=== PATIENT | female | born 1990 | race Caucasian/White ===

== ENCOUNTER 2016-05-31 13:38 | Emergency (ER) | payer OTHER ==
[2016-05-31] MEDS ORDERED: PROMETHAZINE HCL 25 MG TABLET PO ONE ×2 (14:32→19:40)
[2016-05-31] MEDS ORDERED: ACETAMINOPHEN 325 MG TABLET PO ONE (14:32)
--- NOTE | 2016-05-31 14:32 | ER Document Report ---
ED Medical Screen (RME) - General Stated Complaint: VOMITING Time seen by provider: 14:30 Mode of Arrival: Ambulatory Information source: Patient Notes: 26-year-old female presents to ED for nausea and vomiting 5 today. She states vomiting up bile. States she was here the other day for UTI and not is not getting better. Having abdominal pain since this morning generalized 5/5. Last menstrual period was 04/25/2016. I have greeted and performed a rapid initial assessment of this patient. A comprehensive ED assessment and evaluation of the patient, analysis of test results and completion of medical decision making process will be conducted by an additional ED providers. TRAVEL OUTSIDE OF THE [place] IN LAST 30 DAYS: No - Related Data Allergies/Adverse Reactions: Sulfa (Sulfonamide Antibiotics) Allergy (Verified 05/25/16 06:49) Hives aspirin [Aspirin] Adverse Reaction (Intermediate, Verified 05/25/16 06:49) Abdominal pain Past Medical History Pulmonary Medical History: Reports: Hx Asthma Renal/ Medical History: Reports: Hx Kidney Stones. Denies: Hx Peritoneal Dialysis GI Medical History: Reports: Hx Gastroesophageal Reflux Disease Musculoskeltal Medical History: Reports Hx Musculoskeletal Trauma Skin Medical History: Reports Hx Cellulitis, Reports Hx MRSA Psychiatric Medical History: Reports: Hx Attention Deficit Hyperactivity Disorder, Hx Depression Traumatic Medical History: Reports: Hx Fractures - toe Past Surgical History: Reports: Hx Myringotomy, Hx Nose Surgery, Hx Tonsillectomy - Immunizations Immunizations up to date: Yes Hx Diphtheria, Pertussis, Tetanus Vaccination: Yes Physical Exam - Vital signs Vitals: Temp Pulse Resp BP Pulse Ox 98.9 F 93 14 129/87 H 98 05/31/16 14:05/31/16 14:05/31/16 14:05/31/16 14:05/31/16 14:27 Course - Vital Signs Vital signs: Temp Pulse Resp BP Pulse Ox 98.9 F 93 14 129/87 H 98 05/31/16 14:27 05/31/16 14:27 05/31/16 14:27 05/31/16 14:27 05/31/16 14:27
[2016-05-31 15:24] LABS: ABSOLUTE BASOPHILS # (AUTO) 0.1 10^3/uL (0.0-0.2); ABSOLUTE EOSINOPHILS # (AUTO) 0.1 10^3/uL (0.0-0.6); ABSOLUTE LYMPHOCYTES (AUTO) 2.1 10^3/uL (0.5-4.7); ABSOLUTE MONOCYTES (AUTO) 0.7 10^3/uL (0.1-1.4); ABSOLUTE NEUT (AUTO) 10.9 10^3/uL (1.7-8.2); BASOPHILS % (AUTO) 0.5 % (0-2); EOSINOPHILS % (AUTO) 0.5 % (0-6); HEMATOCRIT 45.9 % (36.0-47.0); HEMOGLOBIN 15.8 g/dL (12.0-15.5); HGB HCT DIFFERENCE 1.5; MEAN CORPUSCULAR HEMOGLOBIN 28.9 pg (27.0-33.4); MEAN CORPUSCULAR HGB CONC 34.4 g/dL (32.0-36.0); MEAN CORPUSCULAR VOLUME 84 fl (80-97); RED BLOOD COUNT 5.47 10^6/uL (3.72-5.28); RED CELL DISTRIBUTION WIDTH 13.7 % (11.5-14.0); WHITE BLOOD COUNT 13.8 10^3/uL (4.0-10.5)
[2016-05-31 15:38] LABS: APPEARANCE,URINE CLEAR; BILIRUBIN,URINE NEGATIVE (NEGATIVE); GLUCOSE, URINE NEGATIVE (NEGATIVE); KETONES,URINE 20 mg/dL (NEGATIVE); LEUKOCYTE ESTERASE,URINE TRACE (NEGATIVE); NITRITE,URINE NEGATIVE (NEGATIVE); PROTEIN,URINE NEGATIVE (NEGATIVE); URINE SPECIFIC GRAVITY 1.016; UROBILINOGEN,URINE NEGATIVE mg/dL (<2.0)
[2016-05-31 15:40] LABS: ALANINE AMINOTRANSFERASE 52 U/L (9-52); ALBUMIN 4.3 g/dL (3.5-5.0); ALKALINE PHOSPHATASE 87 U/L (38-126); ANION GAP 15 (5-19); ASPARTATE AMINO TRANSFERASE 44 U/L (14-36); BILIRUBIN,DIRECT 0.2 mg/dL (0.0-0.4); BILIRUBIN,TOTAL 0.9 mg/dL (0.2-1.3); BLOOD UREA NITROGEN 9 mg/dL (7-20); CALCIUM 9.7 mg/dL (8.4-10.2); CARBON DIOXIDE 24 mmol/L (22-30); CHLORIDE 104 mmol/L (98-107); CREATININE RESULT 0.77 mg/dL (0.52-1.25); GLUCOSE 93 mg/dL (75-110); POTASSIUM 4.4 mmol/L (3.6-5.0); SODIUM 143.1 mmol/L (137-145); TOTAL PROTEIN 7.2 g/dL (6.3-8.2)
--- NOTE | 2016-05-31 19:43 | ER Document Report ---
ED GI/ - General Chief Complaint: Abdominal Pain Stated Complaint: VOMITING Time seen by provider: 19:40 Mode of Arrival: Ambulatory Notes: Patient is a 26 year old female that comes to the ED for chief complaint of vomiting, diarrhea, and general abdominal pain that started today. Patient and mom state that multiple family members have the same vomiting symptoms, however patient recently began being treated for urinary tract infection and she is concerned it may have worsened. She denies fever. She denies vaginal bleeding or discharge, blood in vomit or diarrhea, she has only had one to 2 episodes of diarrhea and about 5 episodes of vomiting. She was given Phenergan in triage and has been eating crackers since that time. Patient with medications for anxiety and sleep, denies any abdominal surgeries. TRAVEL OUTSIDE OF THE [place] IN LAST 30 DAYS: No - Related Data Allergies/Adverse Reactions: Sulfa (Sulfonamide Antibiotics) Allergy (Verified 05/31/16 14:31) Hives aspirin [Aspirin] Adverse Reaction (Intermediate, Verified 05/31/16 14:31) Abdominal pain Past Medical History - General Information source: Patient - Social History Smoking Status: Never Smoker Chew tobacco use (# tins/day): No Frequency of alcohol use: None Drug Abuse: None Lives with: Family Family History: Arthritis, CAD, CVA, DM, Hyperlipidemia, Hypertension, Thyroid Disfunction Patient has suicidal ideation: No Patient has homicidal ideation: No Pulmonary Medical History: Reports: Hx Asthma Renal/ Medical History: Reports: Hx Kidney Stones. Denies: Hx Peritoneal Dialysis GI Medical History: Reports: Hx Gastroesophageal Reflux Disease Musculoskeltal Medical History: Reports Hx Musculoskeletal Trauma Skin Medical History: Reports Hx Cellulitis, Reports Hx MRSA Psychiatric Medical History: Reports: Hx Attention Deficit Hyperactivity Disorder, Hx Depression Traumatic Medical History: Reports: Hx Fractures - toe Past Surgical History: Reports: Hx Myringotomy, Hx Nose Surgery, Hx Tonsillectomy - Immunizations Immunizations up to date: Yes Hx Diphtheria, Pertussis, Tetanus Vaccination: Yes Review of Systems - Review of Systems Constitutional: No symptoms reported EENT: No symptoms reported Cardiovascular: No symptoms reported Respiratory: No symptoms reported Gastrointestinal: See HPI Genitourinary: See HPI Female Genitourinary: No symptoms reported Musculoskeletal: No symptoms reported Skin: No symptoms reported Hematologic/Lymphatic: No symptoms reported Neurological/Psychological: No symptoms reported Physical Exam - Vital signs Vitals: Temp Pulse Resp BP Pulse Ox 98.9 F 93 14 129/87 H 98 05/31/16 14:27 05/31/16 14:27 05/31/16 14:27 05/31/16 14:27 05/31/16 14:27 Interpretation: Normal - General General appearance: Appears well, Alert In distress: None - Alert and well-appearing - HEENT Head: Normocephalic, Atraumatic Eyes: Normal Extraocular movements intact: Yes Eyelashes: Normal Pupils: PERRL Mucous membranes: Normal Pharynx: Normal Neck: Normal - Respiratory Respiratory status: No respiratory distress Chest status: Nontender Breath sounds: Normal. No: Decreased air movement, Wheezing Chest palpation: Normal - Cardiovascular Rhythm: Regular Heart sounds: Normal auscultation Murmur: No - Abdominal Inspection: Normal Distension: No distension Bowel sounds: Normal Tenderness: Nontender. No: Tender - Soft and benign throughout Organomegaly: No organomegaly - Back Back: Normal, Nontender. No: CVA tenderness - Unremarkable bilaterally - Extremities General upper extremity: Normal inspection, Nontender, Normal color, Normal ROM , Normal temperature General lower extremity: Normal inspection, Nontender, Normal color, Normal ROM , Normal temperature, Normal weight bearing. No: Bucky's sign - Neurological Neuro grossly intact: Yes Cognition: Normal Orientation: AAOx4 [place] Coma Scale Eye Opening: Spontaneous [place] Coma Scale Verbal: Oriented [place] Coma Scale Motor: Obeys Commands Jacob Coma Scale Total: 15 Speech: Normal Motor strength normal: LUE, RUE, LLE, RLE Sensory: Normal - Psychological Associated symptoms: Normal affect, Normal mood - Skin Skin Temperature: Warm Skin Moisture: Dry Skin Color: Normal Course - Re-evaluation Re-evalutation: Patient's urine is markedly improved and basically resolved compared to prior. No CVA tenderness, soft abdomen. Patient is very well-appearing. Patient states she felt much better after the Phenergan. Has been tolerating fluids all waiting. Asking for another dose of Phenergan because it has been some hours. Mild leukocytosis, chemistry and urine generally unremarkable. Suspect this is viral, patient will complete antibiotics, be treated with nausea medication, follow with primary care, and discussed return precautions. Patient and family members state understanding and agreement. - Vital Signs Vital signs: Temp Pulse Resp BP Pulse Ox 99.0 F 86 16 118/79 97 05/31/16 20:15 05/31/16 20:15 05/31/16 20:15 05/31/16 20:15 05/31/16 20:15 - Laboratory Result Diagrams: 05/31/16 15:00 05/31/16 15:00 Laboratory results interpreted by me: 05/31/16 05/31/16 05/31/16 14:55 15:00 15:00 WBC 13.8 H RBC 5.47 H Hgb 15.8 H Seg Neutrophils % 79.0 H Absolute Neutrophils 10.9 H AST 44 H Urine Ketones 20 H Ur Leukocyte Esterase TRACE H Urine Ascorbic Acid 40 H Discharge - Discharge Clinical Impression: Vomiting and diarrhea Condition: Stable Disposition: HOME, SELF-CARE Additional Instructions: Based on your examination and workup, this vomiting and diarrhea is most likely viral and should subside. Rest, drink plenty of fluids, eat bland food, take the Phenergan for nausea. Return to emergency department for any concerning or worsening symptoms including fever, uncontrolled vomiting, increased pain, etc. Prescriptions: Promethazine HCl [Phenergan 25 mg Tablet] 1 - 2 tab PO Q6H PRN #20 tablet PRN Reason: Scribe Attestation: 05/31/16 19:43
[2016-05-31 20:18] VITALS: BP 118/79
== END 2016-05-31 20:11 | disposition home or self-care (01) ==
LOC: ER 13:38
DX: R11.10 Vomiting, unspecified (principal); R19.7 Diarrhea, unspecified; R10.9 Unspecified abdominal pain
CPT/HCPCS: 36415; 80053; 81001; 84703; 85025; 99284

== ENCOUNTER 2016-08-08 11:37 | Emergency (ER) | payer SELFPAY ==
[2016-08-08 11:47] VITALS: BP 127/91
[2016-08-08] MEDS ORDERED: LIDOCAINE 1% INJ (10 MG/ML) 10 ML MDV INJ ONE (11:51)
[2016-08-08] MEDS ORDERED: DIPH/PERTUSS(ACELL)/TETANUS VAC/PF 0.5 ML SYR (>=10YO) IM ONE (11:51)
[2016-08-08] MEDS ORDERED: LIDOCAINE 1% INJ-PF (10 MG/ML) 30 ML SDV ONE (12:40)
--- NOTE | 2016-08-08 13:06 | ER Document Report ---
ED General - General Chief Complaint: Foreign Body Stated Complaint: HEAD INJURY Time Seen by Provider: 08/08/16 11:51 Mode of Arrival: Ambulatory Information source: Patient TRAVEL OUTSIDE OF THE [place] IN LAST 30 DAYS: No - HPI Onset: Just prior to arrival Associated symptoms: None - This 26-year-old female presented to the emergency room today stating that she was mowing the lawn when she had something and it then struck her in the forehead. She presents with a thick piece of wire protruding from her forehead in the center. - Related Data Allergies/Adverse Reactions: Sulfa (Sulfonamide Antibiotics) Allergy (Verified 05/31/16 14:31) Hives aspirin [Aspirin] Adverse Reaction (Intermediate, Verified 05/31/16 14:31) Abdominal pain Past Medical History - General Information source: Patient - Social History Smoking Status: Never Smoker Chew tobacco use (# tins/day): No Frequency of alcohol use: Rare Drug Abuse: None Family History: Arthritis, CAD, CVA, DM, Hyperlipidemia, Hypertension, Thyroid Disfunction Patient has suicidal ideation: No Patient has homicidal ideation: No Pulmonary Medical History: Reports: Hx Asthma Renal/ Medical History: Reports: Hx Kidney Stones. Denies: Hx Peritoneal Dialysis GI Medical History: Reports: Hx Gastroesophageal Reflux Disease Musculoskeltal Medical History: Reports Hx Musculoskeletal Trauma Skin Medical History: Reports Hx Cellulitis, Reports Hx MRSA Psychiatric Medical History: Reports: Hx Attention Deficit Hyperactivity Disorder, Hx Depression Traumatic Medical History: Reports: Hx Fractures - toe Past Surgical History: Reports: Hx Myringotomy, Hx Nose Surgery, Hx Tonsillectomy - Immunizations Immunizations up to date: Yes Hx Diphtheria, Pertussis, Tetanus Vaccination: Yes - unknown Review of Systems - Review of Systems Constitutional: No symptoms reported EENT: No symptoms reported Cardiovascular: No symptoms reported Respiratory: No symptoms reported Gastrointestinal: No symptoms reported Genitourinary: No symptoms reported Female Genitourinary: No symptoms reported Musculoskeletal: No symptoms reported Skin: No symptoms reported Hematologic/Lymphatic: No symptoms reported Neurological/Psychological: No symptoms reported Physical Exam - Vital signs Vitals: Temp Pulse Resp BP Pulse Ox 98 F 83 18 127/91 H 97 08/08/16 11:42 08/08/16 11:42 08/08/16 11:42 08/08/16 11:42 08/08/16 11:42 Interpretation: Normal - General General appearance: Appears well, Alert - HEENT Head: Normocephalic, Atraumatic Eyes: Normal Pupils: PERRL - Respiratory Respiratory status: No respiratory distress Chest status: Nontender Breath sounds: Normal Chest palpation: Normal - Cardiovascular Rhythm: Regular Heart sounds: Normal auscultation Murmur: No - Abdominal Inspection: Normal Distension: No distension Bowel sounds: Normal Tenderness: Nontender Organomegaly: No organomegaly - Back Back: Normal, Nontender - Extremities General upper extremity: Normal inspection, Nontender, Normal color, Normal ROM , Normal temperature General lower extremity: Normal inspection, Nontender, Normal color, Normal ROM , Normal temperature, Normal weight bearing. No: Bucky's sign - Neurological Neuro grossly intact: Yes Cognition: Normal Orientation: AAOx4 [place] Coma Scale Eye Opening: Spontaneous Jacob Coma Scale Verbal: Oriented Jacob Coma Scale Motor: Obeys Commands Jacob Coma Scale Total: 15 Speech: Normal Motor strength normal: LUE, RUE, LLE, RLE Sensory: Normal - Psychological Associated symptoms: Normal affect, Normal mood - Skin Skin Temperature: Warm Skin Moisture: Dry Skin Color: Normal Course - Re-evaluation Re-evalutation: 08/08/16 13:02 The area was anesthetized 1% lidocaine was cleansed with normal saline and Betadine the point of time it was infiltrated with 1% lidocaine foreign body was removed nurse was asked to clean the affected wound. Bleeding was controlled and was neurovascularly intact after the procedure. 08/08/16 13:03 - Vital Signs Vital signs: Temp Pulse Resp BP Pulse Ox 98 F 83 18 127/91 H 97 08/08/16 11:42 08/08/16 11:42 08/08/16 11:42 08/08/16 11:42 08/08/16 11:42 Discharge - Discharge Clinical Impression: Foreign body to forehead removed Disposition: HOME, SELF-CARE Additional Instructions: Foreign Body You may have had a particle of dust or other foreign body in your eye Today, either your foreign body was found and removed or no foreign body was found. Your eye may be irritated until complete healing occurs. The usual treatment is to place antibiotics in the eye. In addition, pain medication may be necessary. A follow-up visit may be scheduled to assure healing. Do not drive or operate machinery until you have the full use of both your eyes. Healing of the area takes one to three days. If eye pain becomes severe, or if there is purulent drainage, eye swelling , or decreasing vision, call the doctor or return at once for re-evaluation. That area clean and dry follow-up with PMD for recheck to ensure that there is no redness no drainage no discharge please return to the emergency room immediately should any of these things occur. Prescriptions: Sulfamethoxazole/Trimethoprim [Septra-Ds 800-160 mg Tablet] 1 tab PO NOW #20 tablet
== END 2016-08-08 13:00 | disposition home or self-care (01) ==
LOC: ER 11:37
DX: S01.84XA Puncture wound with foreign body of other part of head, initial encounter (principal); W20.8XXA Other cause of strike by thrown, projected or falling object, initial encounter; Y93.H9 Activity, other involving exterior property and land maintenance, building and construction; Z88.2 Allergy status to sulfonamides; J45.909 Unspecified asthma, uncomplicated; Z86.14 Personal history of Methicillin resistant Staphylococcus aureus infection
CPT/HCPCS: 99283; 90471; 90715; J3490

== ENCOUNTER → 2016-08-12 | Outpatient (CLI) | payer OTHER ==
--- NOTE | 2016-08-12 09:18 | RADIOLOGY REPORT (SQ) ---
EXAM DESCRIPTION: U/S ABDOMEN LIMITED W/O DOP COMPLETED DATE/TIME: 08/12/2016 8:37 am REASON FOR STUDY: N/V (R11.2) R11.2 COMPARISON: CT abdomen pelvis 05/25/2016 Abdominal ultrasound 06/18/2015 TECHNIQUE: Dynamic and static grayscale images acquired of the abdomen and recorded on PACS. Additio nal selected color Doppler and spectral images recorded. LIMITATIONS: None. FINDINGS: PANCREAS: Midline pancreas unremarkable LIVER: No masses. Echotexture normal. LIVER VASCULATURE: Normal directional flow of the main portal vein and hepatic veins. GALLBLADDER: No stones. Normal wall thickness. No pericholecystic fluid. ULTRASOUND-DETECTED ZHANG'S SIGN: Negative. INTRAHEPATIC DUCTS AND COMMON DUCT: CBD and intrahepatic ducts normal caliber. No filling defects. C ommon bile duct at the corina hepatis 3 mm in diameter INFERIOR VENA CAVA: Normal flow. AORTA: No aneurysm. RIGHT KIDNEY: Normal size. No right-sided hydronephrosis. Right-sided intrarenal nonobstructive st ones seen on CT 05/25/2016 are not apparent on today's ultrasound PERITONEAL AND RIGHT PLEURAL SPACE: No ascites or effusions. OTHER: The right lower quadrant was imaged. The appendix is not identified. Normal size right ovary , without ovarian cyst. IMPRESSION: No right-sided hydronephrosis. Small calculi seen in the right kidney on CT 05/25/2016 a re not apparent on today's ultrasound exam Appendix not identified Otherwise unremarkable right upper quadrant ultrasound TECHNICAL DOCUMENTATION: JOB ID: [id number] [email or web address]- All Rights Reserved
--- NOTE | 2016-08-12 11:49 | RADIOLOGY REPORT (SQ) ---
EXAM DESCRIPTION: CT ABD/PELVIS WITH IV ORAL COMPLETED DATE/TIME: 08/12/2016 11:38 am REASON FOR STUDY: RLQ PAIN (R10.31) R11.2 COMPARISON: CT abdomen pelvis 05/25/2016 Abdominal ultrasound 08/12/2016, 06/18/2015 TECHNIQUE: CT scan of the abdomen and pelvis performed using helical scanning technique with dynamic intravenous contrast injection. Patient drank minimal oral contrast. Images reviewed with lung, sof t tissue, and bone windows. Reconstructed coronal and sagittal MPR images reviewed. Delayed images fo r evaluation of the urinary system also acquired. All images stored on PACS. All CT scanners at this facility use dose modulation, iterative reconstruction, and/or weight based d osing when appropriate to reduce radiation dose to as low as reasonably achievable (ALARA). [facility]: Dose Right [facility]: CareDose [facility]: Dose Right [facility]: Teradose 4D [facility]: Broadcast [employer] Graphics Display System CONTRAST TYPE AND DOSE: 100mL Isovue 370- low osmolar. RENAL FUNCTION: Creatinine 0.8 RADIATION DOSE: 33.63mGy. LIMITATIONS: None. FINDINGS: LOWER CHEST: No significant findings. No nodules or infiltrates. LIVER: Normal size. No masses or dilated ducts. SPLEEN: Normal size. No focal lesions. PANCREAS: No masses. No significant calcifications. No adjacent inflammation or peripancreatic fluid collections. Pancreatic duct not dilated. GALLBLADDER: No identified stones by CT criteria. No inflammatory changes to suggest cholecystitis. ADRENAL GLANDS: No significant masses or asymmetry. RIGHT KIDNEY AND URETER: No solid masses. Multiple less than 5 mm intrarenal nonobstructive kidney stones. No right ureteral calculi. No hydronephrosis or hydroureter. LEFT KIDNEY AND URETER: No solid masses. Multiple less than 5 mm intrarenal nonobstructive kidney s tones. No left ureteral calculi. No hydronephrosis or hydroureter. AORTA AND VESSELS: No aneurysm. No dissection. Renal arteries, SMA, celiac without stenosis. RETROPERITONEUM: No retroperitoneal adenopathy, hemorrhage or masses. BOWEL AND PERITONEAL CAVITY: No masses or inflammatory changes. No free fluid or peritoneal masses. APPENDIX: Normal. PELVIS: No mass or free fluid. Normal bladder. ABDOMINAL WALL: No masses. No hernias. BONES: No significant or acute findings. OTHER: No other significant finding. IMPRESSION: Bilateral intrarenal nonobstructive kidney stones. No ureteral calculi. No hydronephro sis or hydroureter. No bladder stones. No CT evidence of bowel obstruction or appendicitis. TECHNICAL DOCUMENTATION: JOB ID: [id number] Quality ID # [id number]: Final reports with documentation of one or more dose reduction techniques (e.g., Au tomated exposure control, adjustment of the mA and/or kV according to patient size, use of iterative reconstruction technique) 2010 [employer]- All Rights Reserved
== END ==
LOC: RAD 07:09
PROVIDERS: ATTEND Nurse Practitioner Family
DX: R10.31 Right lower quadrant pain (principal); R11.2 Nausea with vomiting, unspecified; N20.0 Calculus of kidney
CPT/HCPCS: 74177; 76705; 82565

== ENCOUNTER 2016-12-06 22:31 | Emergency (ER) | payer OTHER ==
[2016-12-06 22:37] VITALS: BP 131/86
[2016-12-06] MEDS ORDERED: KETOROLAC TROMETHAMINE INJ/PF 30 MG/1 ML SDV IV ONE (22:43)
[2016-12-06] MEDS ORDERED: ONDANSETRON HCL INJ/PF 4 MG/2 ML SDV IV ONE (22:43)
[2016-12-06] MEDS ORDERED: MORPHINE SULFATE 10 MG/ML INJ IV ONE (22:45)
[2016-12-06] MEDS ORDERED: NORMAL SALINE 1000 ML 1,000 ML IV ONE (23:08)
--- NOTE | 2016-12-06 23:19 | ER Document Report ---
ED GI/ - General Chief Complaint: Flank Pain Stated Complaint: LEFT FLANK PAIN Time Seen by Provider: 12/06/16 22:44 Notes: The patient is a 26-year-old female, past medical history kidney stones, presents with left flank pain for the past 2 hours. PE: Actively vomiting in triage. I have greeted and performed a rapid initial assessment of this patient. A comprehensive ED assessment and evaluation of the patient, analysis of test results and completion of the medical decision making process will be conducted by additional ED providers. TRAVEL OUTSIDE OF THE [place] IN LAST 30 DAYS: No - Related Data Allergies/Adverse Reactions: Sulfa (Sulfonamide Antibiotics) Allergy (Verified 05/31/16 14:31) Hives aspirin [Aspirin] Adverse Reaction (Intermediate, Verified 05/31/16 14:31) Abdominal pain Past Medical History - Social History Smoking Status: Unknown if Ever Smoked Family History: Arthritis, CAD, CVA, DM, Hyperlipidemia, Hypertension, Thyroid Disfunction Patient has suicidal ideation: No Patient has homicidal ideation: No Pulmonary Medical History: Reports: Hx Asthma Renal/ Medical History: Reports: Hx Kidney Stones. Denies: Hx Peritoneal Dialysis GI Medical History: Reports: Hx Gastroesophageal Reflux Disease Musculoskeltal Medical History: Reports Hx Musculoskeletal Trauma Skin Medical History: Reports Hx Cellulitis, Reports Hx MRSA Psychiatric Medical History: Reports: Hx Attention Deficit Hyperactivity Disorder, Hx Depression Traumatic Medical History: Reports: Hx Fractures - toe Past Surgical History: Reports: Hx Myringotomy, Hx Nose Surgery, Hx Tonsillectomy - Immunizations Immunizations up to date: Yes Hx Diphtheria, Pertussis, Tetanus Vaccination: Yes - unknown Physical Exam - Vital signs Vitals: Temp Pulse Resp BP Pulse Ox 97.7 F 79 18 131/86 H 96 12/06/16 22:33 12/06/16 22:33 12/06/16 22:33 12/06/16 22:33 12/06/16 22:33 Course - Vital Signs Vital signs: Temp Pulse Resp BP Pulse Ox 97.7 F 79 18 131/86 H 96 12/06/16 22:33 12/06/16 22:33 12/06/16 22:33 12/06/16 22:33 12/06/16 22:33
--- NOTE | 2016-12-06 23:56 | ER Document Report ---
ED GI/ - General Mode of Arrival: Wheelchair Information source: Patient TRAVEL OUTSIDE OF THE [place] IN LAST 30 DAYS: No - General Chief Complaint: Flank Pain Stated Complaint: LEFT FLANK PAIN Time Seen by Provider: 12/06/16 22:44 Notes: Patient is a 26 year old female presenting to the emergency department for left flank pain, abdominal pain, and vomiting. Patient states her pain started in her left flank but has radiated into her lower left abdomen. Patient has a history of kidney stones and states her current pain is similar to the first kidney stone she had when she was in high school. Patient recently had a CT on 08/12/2016 showing bilateral intrarenal nonobstructing kidney stones. Patient states she last passed a kidney stone 2-3 weeks ago and she did so without seeking medical attention. Patient's last menstrual period was 1 week ago and was normal and on time. Patient is allergic to sulfa. (MARGARITA JEROME) - Related Data Allergies/Adverse Reactions: Sulfa (Sulfonamide Antibiotics) Allergy (Verified 05/31/16 14:31) Hives aspirin [Aspirin] Adverse Reaction (Intermediate, Verified 05/31/16 14:31) Abdominal pain Past Medical History - General Information source: Patient - Social History Smoking Status: Never Smoker Cigarette use (# per day): No Chew tobacco use (# tins/day): No Smoking Education Provided: No Frequency of alcohol use: None Drug Abuse: None Family History: Arthritis, CAD, CVA, DM, Hyperlipidemia, Hypertension, Thyroid Disfunction Patient has suicidal ideation: No Patient has homicidal ideation: No Pulmonary Medical History: Reports: Hx Asthma Renal/ Medical History: Reports: Hx Kidney Stones GI Medical History: Reports: Hx Gastroesophageal Reflux Disease Musculoskeltal Medical History: Reports Hx Musculoskeletal Trauma Skin Medical History: Reports Hx Cellulitis, Reports Hx MRSA Psychiatric Medical History: Reports: Hx Attention Deficit Hyperactivity Disorder, Hx Depression Traumatic Medical History: Reports: Hx Fractures - toe Past Surgical History: Reports: Hx Myringotomy, Hx Nose Surgery, Hx Tonsillectomy - Immunizations Immunizations up to date: Yes Hx Diphtheria, Pertussis, Tetanus Vaccination: Yes - unknown Review of Systems - Review of Systems Constitutional: No symptoms reported EENT: No symptoms reported Cardiovascular: No symptoms reported Respiratory: No symptoms reported Gastrointestinal: See HPI, Abdominal pain, Nausea, Vomiting Genitourinary: See HPI, Flank pain Female Genitourinary: No symptoms reported, Last menstrual period - 11/29/2016 Musculoskeletal: No symptoms reported Skin: No symptoms reported Hematologic/Lymphatic: No symptoms reported Neurological/Psychological: No symptoms reported -: Yes All other systems reviewed and negative Physical Exam - Vital signs Interpretation: Normal - Vital signs Vitals: Temp Pulse Resp BP Pulse Ox 97.7 F 79 18 131/86 H 96 12/06/16 22:33 12/06/16 22:33 12/06/16 22:33 12/06/16 22:33 12/06/16 22:33 - Notes Notes: GENERAL: Alert, interacts well. Mild distress. HEAD: Normocephalic, atraumatic. EYES: Appear normal. Pupils equal, round, and reactive to light. ENT: Moist mucus membranes, tongue midline. NECK: Full range of motion. Supple. Trachea midline. LUNGS: Clear to auscultation bilaterally, no wheezes, rales, or rhonchi. No respiratory distress. HEART: Regular rate and rhythm. No murmurs, gallops, or rubs. ABDOMEN: Obese. Soft, LLQ abdominal tenderness with palpation. Non-distended. Normal bowel sounds. BACK: Left CVA tenderness with percussion. EXTREMITIES: Moves all 4 extremities spontaneously. Normal strength. No edema. NEUROLOGICAL: Alert and oriented x3. Normal speech. No focal neurological deficits. GCS 15. PSYCH: Normal affect, normal mood. SKIN: Warm, dry, normal turgor. No rashes or lesions noted. (MARGARITA JEROME) Course - Re-evaluation Re-evalutation: 12/07/16 00:53 Patient's urine shows trace leukocyte esterase, 1+ bacteria, 8 WBCs and too numerous to count RBCs with budding yeast present. Clinical picture suggests renal colic, urine suggests urinary tract infection. She is known to have bilateral renal stones from prior CT scans. CT scan will not be done at this time due to no significant change in treatment anticipated based on the scan. She will be given a dose of Diflucan today. She will be started on antibiotics for the urine. She will have a urine culture done. She will be prescribed anti-medics and pain medications. She should follow-up with her primary care provider or a urologist if not improving. (JACE GUILLEN) - Vital Signs Vital signs: Temp Pulse Resp BP Pulse Ox 97.7 F 79 18 131/86 H 96 12/06/16 22:33 12/06/16 22:33 12/06/16 22:33 12/06/16 22:33 12/06/16 22:33 - Laboratory Laboratory results interpreted by me: 12/06/16 22:50 Urine Protein 30 H Urine Blood LARGE H Ur Leukocyte Esterase TRACE H Discharge - Discharge Clinical Impression: Acute flank pain, History of kidney stones, Yeast cells and fungal elements present on diagnostic testing Urinary tract infection Qualifiers: Urinary tract infection type: site unspecified Hematuria presence: with hematuria Qualified Code(s): N39.0 - Urinary tract infection, site not specified Disposition: HOME, SELF-CARE Additional Instructions: Kidney Stone You MAY be passing a kidney stone. These stones are usually due to increased calcium or uric acid concentrations in your urine. Stones within the kidney itself are not painful. The pain occurs as the stone leaves the kidney to pass down the long tube, called the ureter, leading to the bladder. If the stone is small, it will usually pass by itself. Most patients can pass the stone at home. You will usually receive medications for pain, nausea or vomiting, and sometimes a medication to assist in passing the kidney stone. However, if the pain is very severe or if vomiting prevents you from taking oral pain medications, you may need to return for further treatment. Drink three or four quarts of fluids per day. You will be given pain medication (if needed) and urine strainers. Strain all your urine to see if the stone passes. If your doctor has asked you to bring the stone in for analysis, return with the stone once it has passed. Return if pain or vomiting become severe, if you develop a high fever, if you are unable to pass your urine, or if other unusual symptoms occur. //////////////////////////////////////////////////////////////////////////////// //////////////////////////////////////////////////////////////////////////////// ////////////////// Your history and physical exam suggests you are having pain from passing a kidney stone. Your urine does show some signs of possible infection and a vaginal yeast infection. You were given a dose of Diflucan for the yeast infection. The urine was cultured and you were started on antibiotics for this. You will be discharged with prescription for antibiotics, pain medication and nausea medication. You should drink plenty of fluids and strain the urine. Follow-up with your primary care provider or a local urologist if not improving. RETURN TO THE EMERGENCY ROOM IF ANY NEW OR WORSENING SYMPTOMS. Prescriptions: Cephalexin Monohydrate [Keflex 500 mg Capsule] 500 mg PO BID #10 capsule Ondansetron HCl [Zofran 4 mg Tablet] 1 - 2 tab PO Q4H PRN #20 tablet PRN Reason: Oxycodone HCl/Acetaminophen [Percocet 5-325 mg Tablet] 1 - 2 tab PO ASDIR PRN # 15 tablet PRN Reason: Forms: Return to Work Scribe Attestation: 12/07/16 00:37 I personally performed the services described in the documentation, reviewed and edited the documentation which was dictated to the scribe in my presence, and it accurately records my words and actions. (JACE GUILLEN) Scribe Documentation - Scribe Written by Scribe:: Margarita Jerome, Scribe 12/07/2016 1:15 acting as scribe for :: Loretta
[2016-12-07] MEDS ORDERED: MORPHINE SULFATE 10 MG/ML INJ IV ONE ×2 (00:19→01:02)
[2016-12-07] MEDS ORDERED: NORMAL SALINE 1000 ML 1,000 ML IV ONE (00:43)
[2016-12-07 00:48] LABS: AMORPHOUS SEDIMENT,URINE TRACE /HPF; APPEARANCE,URINE CLOUDY; BILIRUBIN,URINE NEGATIVE (NEGATIVE); GLUCOSE, URINE NEGATIVE (NEGATIVE); KETONES,URINE NEGATIVE (NEGATIVE); LEUKOCYTE ESTERASE,URINE TRACE (NEGATIVE); NITRITE,URINE NEGATIVE (NEGATIVE); PROTEIN,URINE 30 mg/dL (NEGATIVE); URINE SPECIFIC GRAVITY 1.017; UROBILINOGEN,URINE NEGATIVE mg/dL (<2.0)
[2016-12-07] MEDS ORDERED: CEPHALEXIN 500 MG CAPSULE PO ONE (00:51)
[2016-12-07] MEDS ORDERED: FLUCONAZOLE 100 MG TABLET PO ONE (00:52)
[2016-12-07] MEDS ORDERED: HYDROCODONE/ACETAMINOPHEN 5-325 MG 6 TAB/DSPK PO PRN (01:02)
[2016-12-07] MEDS ORDERED: ONDANSETRON HCL INJ/PF 4 MG/2 ML SDV IV ONE (01:02)
[2016-12-07] MEDS ORDERED: ONDANSETRON ODT 4 MG TAB (6 TAB/DSPK) PO PRN (01:02)
== END 2016-12-07 01:35 | disposition home or self-care (01) ==
LOC: ER 22:31
DX: N39.0 Urinary tract infection, site not specified (principal); R10.9 Unspecified abdominal pain; R11.10 Vomiting, unspecified; R10.32 Left lower quadrant pain
CPT/HCPCS: 96376; 99284; 96361; 96374; 96375; 87086; 81025; 81001; J1885; J2270 ×2; J2405; J7030

== ENCOUNTER 2017-01-27 10:08 | Emergency (ER) | payer OTHER ==
[2017-01-27 10:14] VITALS: BP 135/82
[2017-01-27] MEDS ORDERED: IBUPROFEN 600 MG TABLET PO ONE (10:23)
[2017-01-27] MEDS ORDERED: ONDANSETRON 4 MG TAB.RAPDIS PO ONE (10:23)
[2017-01-27] MEDS ORDERED: OXYCODONE-ACETAMINOPHEN 5-325 MG TABLET PO ONE (10:23)
--- NOTE | 2017-01-27 10:26 | ER Document Report ---
ED GI/ - General Chief Complaint: Urinary Problem Stated Complaint: ABDOMINAL PAIN Time Seen by Provider: 01/27/17 10:20 Notes: The patient is a 26-year-old female, past medical history frequent kidney stones , presents with worsening right flank pain radiating to her groin and nausea. She was seen last week and had a 4 mm right-sided kidney stone. She is taking her Percocet and Phenergan with some relief her symptoms, but she ran out. She used to follow with urology at [facility], but she lost her Medicaid. She has never required stents to pass her prior stents. She denies fevers, dysuria, diarrhea, constipation, vaginal discharge or bleeding or hematemesis. TRAVEL OUTSIDE OF THE [place] IN LAST 30 DAYS: No - Related Data Allergies/Adverse Reactions: Sulfa (Sulfonamide Antibiotics) Allergy (Verified 01/19/17 00:32) Hives aspirin [Aspirin] Adverse Reaction (Intermediate, Verified 01/19/17 00:32) Abdominal pain Past Medical History - General Information source: Patient - Social History Smoking Status: Unknown if Ever Smoked Family History: Arthritis, CAD, CVA, DM, Hyperlipidemia, Hypertension, Thyroid Disfunction Pulmonary Medical History: Reports: Hx Asthma Renal/ Medical History: Reports: Hx Kidney Stones. Denies: Hx Peritoneal Dialysis GI Medical History: Reports: Hx Gastroesophageal Reflux Disease Musculoskeltal Medical History: Reports Hx Musculoskeletal Trauma Skin Medical History: Reports Hx Cellulitis, Reports Hx MRSA Psychiatric Medical History: Reports: Hx Attention Deficit Hyperactivity Disorder, Hx Depression Traumatic Medical History: Reports: Hx Fractures - toe Past Surgical History: Reports: Hx Myringotomy, Hx Nose Surgery, Hx Tonsillectomy - Immunizations Immunizations up to date: Yes Hx Diphtheria, Pertussis, Tetanus Vaccination: Yes - unknown Review of Systems - Review of Systems Notes: REVIEW OF SYSTEMS: CONSTITUTIONAL: -fevers, -chills EENT: -eye pain, -difficulty swallowing, -nasal congestion CARDIOVASCULAR:-chest pain, -syncope. RESPIRATORY: -cough, -SOB GASTROINTESTINAL: -abdominal pain, - nausea, -vomiting, -diarrhea GENITOURINARY: -dysuria, +hematuria MUSCULOSKELETAL: +right flank pain, -neck pain SKIN: -rash or skin lesions. HEMATOLOGIC: -easy bruising or bleeding. LYMPHATIC: -swollen, enlarged glands. NEUROLOGICAL: -altered mental status or loss of consciousness, -headache, - neurologic symptoms PSYCHIATRIC: -anxiety, -depression. ALL OTHER SYSTEMS REVIEWED AND NEGATIVE. Physical Exam - Vital signs Vitals: Temp Pulse Resp BP Pulse Ox 98.0 F 93 18 135/82 H 97 01/27/17 10:10 01/27/17 10:10 01/27/17 10:10 01/27/17 10:10 01/27/17 10:10 - Notes Notes: PHYSICAL EXAMINATION: GENERAL: Uncomfortable. HEAD: Atraumatic, normocephalic. EYES: Pupils equal round and reactive to light, extraocular movements intact, sclera anicteric, conjunctiva are normal. ENT: nares patent, oropharynx clear without exudates. Moist mucous membranes. NECK: Normal range of motion, supple without lymphadenopathy LUNGS: Breath sounds clear to auscultation bilaterally and equal. No wheezes rales or rhonchi. HEART: Regular rate and rhythm without murmurs ABDOMEN: Soft, nontender, normoactive bowel sounds. No guarding, no rebound. No masses appreciated. BACK: No CVA tenderness. EXTREMITIES: Normal range of motion, no pitting or edema. No cyanosis. NEUROLOGICAL: Cranial nerves grossly intact. Normal speech, normal gait. Normal sensory and motor exams. SKIN: Warm, Dry, normal turgor, no rashes or lesions noted. Course - Re-evaluation Re-evalutation: Patient with a 4 mm stone on CAT scan last week. Her urinalysis shows many RBCs , 13 WBCs and only trace leukocyte esterase. Appears contaminated with 3+ squamous cells. Without fever or CVA tenderness, she does not appear to have an infected kidney stone. Patient recently obtained insurance and says she will call for a urology appointment. Provided her with pain medication, Phenergan and Pyridium to help with her symptoms. Given strict return precautions and she understands. - Vital Signs Vital signs: Temp Pulse Resp BP Pulse Ox 98.0 F 93 18 135/82 H 97 01/27/17 10:10 01/27/17 10:10 01/27/17 10:10 01/27/17 10:10 01/27/17 10:10 - Laboratory Laboratory results interpreted by me: 01/27/17 10:26 Urine Protein 30 H Urine Blood LARGE H Ur Leukocyte Esterase TRACE H Discharge - Discharge Clinical Impression: Kidney stone on right side Condition: Stable Disposition: HOME, SELF-CARE Additional Instructions: KIDNEY STONE: You are passing or have passed a kidney stone. These stones are usually due to increased calcium or uric acid concentrations in your urine. Stones within the kidney itself are not painful. The pain occurs as the stone leaves the kidney to pass down the long tube, called the ureter, leading to the bladder. If the stone is small, it will usually pass by itself. Most patients can pass the stone at home. You will usually receive medications for pain, nausea or vomiting, and sometimes a medication to assist in passing the kidney stone. However, if the pain is very severe or if vomiting prevents you from taking oral pain medications, you may need to return for further treatment. Drink three or four quarts of fluids per day. You will be given pain medication (if needed) and urine strainers. Strain all your urine to see if the stone passes. If your doctor has asked you to bring the stone in for analysis, return with the stone once it has passed. Return if pain or vomiting become severe, if you develop a high fever, if you are unable to pass your urine, or if other unusual symptoms occur. ANTINAUSEA MEDICATION: You have been given a medication to suppress nausea and vomiting. This type of medication can be given as a shot, pill, or suppository. It will usually last for many hours. Pills and shots usually last six to eight hours, suppositories last about 12 hours. For the typical illness, only one or two doses of the medication may be necessary. Mild lightheadedness may occur. This type of medicine can cause drowsiness. Do not drive or operate dangerous machinery while under its influence. Do not mix with alcohol. See your doctor at once if you have muscle spasms or tightness, or uncontrollable motions (particularly of the neck, mouth, or jaw). Persistent vomiting or severe lightheadedness should also be evaluated by the physician. ORAL NARCOTIC MEDICATION: You have been given a prescription for pain control. This medication is a narcotic. It's best taken with food, as nausea can result if taken on an empty stomach. Don't operate machinery or drive within six hours of taking this medication. Do not combine this medicine with alcohol, or with any medication which can cause sedation (such as cold tablets or sleeping pills) unless you get permission from the physician. Narcotics tend to cause constipation. If possible, drink plenty of fluids and eat a diet high in fiber and fruits. Please be aware that prescription narcotics also have the potential for abuse. People become addicted to these medications because of the general sense of wellbeing that they induce. This feeling along with a significant reduction in tension, anxiety, and aggression provides a stimulating seductive quality to these drugs. Once your pain is under control, we encourage you to discard your unused narcotics. FOLLOW-UP CARE: If you have been referred to a physician for follow-up care, call the physician s office for an appointment as you were instructed or within the next two days. If you experience worsening or a significant change in your symptoms, notify the physician immediately or return to the Emergency Department at any time for re-evaluation. Prescriptions: Ondansetron [Zofran Odt 4 mg Tablet] 1 - 2 tab PO Q4H PRN #15 tab.rapdis PRN Reason: For Nausea/Vomiting Oxycodone HCl/Acetaminophen [Percocet 5-325 mg Tablet] 1 - 2 tab PO Q4H PRN #15 tablet PRN Reason: Phenazopyridine HCl [Pyridium 200 mg Tablet] 200 mg PO TID #15 tablet Promethazine HCl [Phenergan 25 mg Tablet] 1 - 2 tab PO Q6H PRN #15 tablet PRN Reason: Forms: Return to Work Referrals: PITER LITTLE MD [ACTIVE STAFF] - Follow up as needed
[2017-01-27 10:51] LABS: APPEARANCE,URINE CLOUDY; BILIRUBIN,URINE NEGATIVE (NEGATIVE); GLUCOSE, URINE NEGATIVE (NEGATIVE); KETONES,URINE NEGATIVE (NEGATIVE); LEUKOCYTE ESTERASE,URINE TRACE (NEGATIVE); NITRITE,URINE NEGATIVE (NEGATIVE); PROTEIN,URINE 30 mg/dL (NEGATIVE); URINE SPECIFIC GRAVITY 1.018; UROBILINOGEN,URINE NEGATIVE mg/dL (<2.0)
== END 2017-01-27 11:03 | disposition home or self-care (01) ==
LOC: ER 10:08
DX: N20.0 Calculus of kidney (principal); R10.9 Unspecified abdominal pain; R11.0 Nausea; Z87.442 Personal history of urinary calculi; Z88.2 Allergy status to sulfonamides; Z88.6 Allergy status to analgesic agent
CPT/HCPCS: 99284; 81025; 81001; S0119

== ENCOUNTER 2017-06-22 17:03 | Inpatient (IN) | payer OTHER ==
[2017-06-22] MEDS ORDERED: ONDANSETRON HCL INJ/PF 4 MG/2 ML SDV IV ONE (17:51)
[2017-06-22] MEDS ORDERED: NORMAL SALINE 1000 ML 1,000 ML IV ONE (17:51)
[2017-06-22] MEDS ORDERED: MORPHINE SULFATE 10 MG/ML INJ IV ONE ×2 (17:51→20:32)
[2017-06-22] MEDS ORDERED: ACETAMINOPHEN 325 MG TABLET PO ONE (17:53)
[2017-06-22] MEDS ORDERED: CEFTRIAXONE 2 GM/D5W RTU 2 GM/50 ML RTUPB IV ONE (17:53)
--- NOTE | 2017-06-22 18:29 | ER Document Report ---
ED Medical Screen (RME) - General Chief Complaint: Possible Kidney Stone Stated Complaint: FLANK PAIN Time Seen by Provider: 06/22/17 17:48 Notes: Patient states that she was seen here last night and diagnosed with urinary tract infection. She states she is now feeling worse with fevers chills and generalized malaise. TRAVEL OUTSIDE OF THE [place] IN LAST 30 DAYS: No - Related Data Allergies/Adverse Reactions: Sulfa (Sulfonamide Antibiotics) Allergy (Verified 06/22/17 17:05) Hives aspirin [Aspirin] Adverse Reaction (Intermediate, Verified 06/22/17 17:05) Abdominal pain Past Medical History - General Last Menstrual Period: jun 19 - Social History Chew tobacco use (# tins/day): No Frequency of alcohol use: None Drug Abuse: None Pulmonary Medical History: Reports: Hx Asthma Renal/ Medical History: Reports: Hx Kidney Stones. Denies: Hx Peritoneal Dialysis GI Medical History: Reports: Hx Gastroesophageal Reflux Disease Musculoskeltal Medical History: Reports Hx Musculoskeletal Trauma Skin Medical History: Reports Hx Cellulitis, Reports Hx MRSA Psychiatric Medical History: Reports: Hx Attention Deficit Hyperactivity Disorder, Hx Depression Traumatic Medical History: Reports: Hx Fractures - toe Past Surgical History: Reports: Hx Myringotomy, Hx Nose Surgery, Hx Tonsillectomy - Immunizations Immunizations up to date: Yes Hx Diphtheria, Pertussis, Tetanus Vaccination: Yes - unknown Physical Exam - Vital signs Vitals: Temp Pulse Resp BP Pulse Ox 100.6 F H 123 H 20 137/79 H 96 06/22/17 17:15 06/22/17 17:15 06/22/17 17:15 06/22/17 17:15 06/22/17 17:15 Course - Vital Signs Vital signs: Temp Pulse Resp BP Pulse Ox 100.6 F H 123 H 20 137/79 H 96 06/22/17 17:15 06/22/17 17:15 06/22/17 17:15 06/22/17 17:15 06/22/17 17:15 - Laboratory Result Diagrams: 06/22/17 18:15 06/22/17 18:15 Doctor's Discharge - Discharge Referrals: VASQUEZ DOSHI PA-C [Primary Care Provider] - Follow up as needed
[2017-06-22 18:40] LABS: ABSOLUTE BASOPHILS # (AUTO) 0.1 10^3/uL (0.0-0.2); ABSOLUTE EOSINOPHILS # (AUTO) 0.2 10^3/uL (0.0-0.6); ABSOLUTE LYMPHOCYTES (AUTO) 2.2 10^3/uL (0.5-4.7); ABSOLUTE NEUT (AUTO) 9.3 10^3/uL (1.7-8.2); BASOPHILS % (AUTO) 0.4 % (0-2); EOSINOPHILS % (AUTO) 1.7 % (0-6); HEMATOCRIT 41.7 % (36.0-47.0); HEMOGLOBIN 13.8 g/dL (12.0-15.5); LYMPHOCYTES % (AUTO) 17.3 % (13-45); MEAN CORPUSCULAR HEMOGLOBIN 28.4 pg (27.0-33.4); MEAN CORPUSCULAR HGB CONC 33.1 g/dL (32.0-36.0); MEAN CORPUSCULAR VOLUME 86 fl (80-97); MONOCYTES % (AUTO) 7.6 % (3-13); PLATELET COUNT 255 10^3/uL (150-450); RED BLOOD COUNT 4.84 10^6/uL (3.72-5.28); RED CELL DISTRIBUTION WIDTH 13.2 % (11.5-14.0); TOTAL CELLS COUNTED % (AUTO) 100 %; VENOUS BLOOD BASE EXCESS 0.7 mmol/L; VENOUS BLOOD HCO3 26.2 mmol/L (20-32); VENOUS BLOOD PH 7.38 (7.30-7.42); WHITE BLOOD COUNT 12.8 10^3/uL (4.0-10.5)
[2017-06-22 18:48] LABS: APPEARANCE,URINE CLOUDY; BILIRUBIN,URINE NEGATIVE (NEGATIVE); COLOR,URINE YELLOW; GLUCOSE, URINE NEGATIVE (NEGATIVE); KETONES,URINE NEGATIVE (NEGATIVE); LEUKOCYTE ESTERASE,URINE LARGE (NEGATIVE); NITRITE,URINE NEGATIVE (NEGATIVE); PROTEIN,URINE NEGATIVE (NEGATIVE); URINE SPECIFIC GRAVITY 1.017; UROBILINOGEN,URINE NEGATIVE mg/dL (<2.0)
[2017-06-22 19:03] LABS: ALANINE AMINOTRANSFERASE 19 U/L (9-52); ALBUMIN 3.8 g/dL (3.5-5.0); ALKALINE PHOSPHATASE 95 U/L (38-126); ANION GAP 8 (5-19); ASPARTATE AMINO TRANSFERASE 18 U/L (14-36); BILIRUBIN,DIRECT 0.4 mg/dL (0.0-0.4); BILIRUBIN,TOTAL 0.5 mg/dL (0.2-1.3); BLOOD UREA NITROGEN 18 mg/dL (7-20); CALCIUM 9.2 mg/dL (8.4-10.2); CARBON DIOXIDE 30 mmol/L (22-30); CHLORIDE 101 mmol/L (98-107); GLUCOSE 84 mg/dL (75-110); POTASSIUM 4.5 mmol/L (3.6-5.0); SODIUM 139.1 mmol/L (137-145); TOTAL PROTEIN 6.7 g/dL (6.3-8.2)
--- NOTE | 2017-06-22 20:31 | ER Document Report ---
ED General - General Chief Complaint: Possible Kidney Stone Stated Complaint: FLANK PAIN Time Seen by Provider: 06/22/17 17:48 TRAVEL OUTSIDE OF THE [place] IN LAST 30 DAYS: No - HPI Notes: Patient is a 27-year-old female with no significant past medical history aside from recurrent kidney stones who presents to the ED complaining of left flank pain that radiates into her groin, dysuria, hematuria, urinary urgency/frequency , nausea 1 week. Patient was evaluated yesterday and was diagnosed with a UTI , ?stone. Patient has been taking her medicines as directed. Patient began a low fever this afternoon which prompted her to come to the emergency department with her mother. No other concerns or complaints at this time. Denies any headache, neck pain, URI, sore throat, chest pain, palpitations, syncope, cough , shortness of breath, wheeze, dyspnea, vomiting/diarrhea, loss of control of bowel or bladder, numbness/tingling, saddle anesthesia, muscle paralysis/ weakness, or rash. - Related Data Allergies/Adverse Reactions: Sulfa (Sulfonamide Antibiotics) Allergy (Verified 06/22/17 17:05) Hives aspirin [Aspirin] Adverse Reaction (Intermediate, Verified 06/22/17 17:05) Abdominal pain Past Medical History - General Last Menstrual Period: jun 19 - Social History Smoking Status: Never Smoker Chew tobacco use (# tins/day): No Frequency of alcohol use: None Drug Abuse: None Family History: Arthritis, CAD, CVA, DM, Hyperlipidemia, Hypertension, Thyroid Disfunction Patient has suicidal ideation: No Patient has homicidal ideation: No Pulmonary Medical History: Reports: Hx Asthma Renal/ Medical History: Reports: Hx Kidney Stones. Denies: Hx Peritoneal Dialysis GI Medical History: Reports: Hx Gastroesophageal Reflux Disease Musculoskeltal Medical History: Reports Hx Musculoskeletal Trauma Skin Medical History: Reports Hx Cellulitis, Reports Hx MRSA Psychiatric Medical History: Reports: Hx Attention Deficit Hyperactivity Disorder, Hx Depression Traumatic Medical History: Reports: Hx Fractures - toe Past Surgical History: Reports: Hx Myringotomy, Hx Nose Surgery, Hx Tonsillectomy - Immunizations Immunizations up to date: Yes Hx Diphtheria, Pertussis, Tetanus Vaccination: Yes - unknown Review of Systems - Review of Systems -: Yes All other systems reviewed and negative Physical Exam - Vital signs Vitals: Temp Pulse Resp BP Pulse Ox 100.6 F H 123 H 20 137/79 H 96 06/22/17 17:15 06/22/17 17:15 06/22/17 17:15 06/22/17 17:15 06/22/17 17:15 - Notes Notes: PHYSICAL EXAMINATION: GENERAL: Well-appearing, well-nourished and in no acute distress. HEAD: Atraumatic, normocephalic. EYES: Pupils equal round and reactive to light, extraocular movements intact, sclera anicteric, conjunctiva are normal. NECK: Normal range of motion, supple without lymphadenopathy LUNGS: Breath sounds clear to auscultation bilaterally and equal. No wheezes rales or rhonchi. HEART: Regular rate and rhythm without murmurs, rubs, gallops. ABDOMEN: Soft, nontender, nondistended abdomen. No guarding, no rebound. No masses appreciated. Normal bowel sounds present. + left CVA tenderness. Musculoskeletal: FROM to passive/active. Strength 5+/5. Extremities: No cyanosis, clubbing, or edema b/l. Peripheral pulses 2+. Capillary refill less than 3 seconds. NEUROLOGICAL: Normal speech, normal gait. Normal sensory, motor exams PSYCH: Normal mood, normal affect. SKIN: Warm, Dry, normal turgor, no rashes or lesions noted. Course - Re-evaluation Re-evalutation: Patient is a 27-year-old female who presents to the ED with a case of urosepsis she presented with fever, elevated white count, UTI and has a moderate hydroureter/nephrosis with 3 small stones on the left side. I did review this case with our urologist on-call, Dr. Welch, who will come evaluate the patient and take her to the operating room this evening. Reviewed this case with the family who is in agreement at this time. 06/22/17 23:10 Dr. Moore accepted patient for admit after the surgery. Dr. Welch arrived to speak with patient and take over care. 06/22/17 23:21 Pt ate crackers 2.5 hours ago. Pt will have the procedure performed tomorrow morning by Dr. Welch. Dr. Welch reviewed case with Dr. Moore. - Vital Signs Vital signs: Temp Pulse Resp BP Pulse Ox 98.5 F 93 20 113/73 96 06/22/17 21:06 06/22/17 21:06 06/22/17 21:06 06/22/17 21:06 06/22/17 17:15 - Laboratory Result Diagrams: 06/22/17 18:15 06/22/17 18:15 Laboratory results interpreted by me: 06/22/17 06/22/17 18:15 18:15 WBC 12.8 H Absolute Neutrophils 9.3 H Urine Blood SMALL H Ur Leukocyte Esterase LARGE H Discharge - Discharge Clinical Impression: Kidney stone on left side UTI (urinary tract infection) Qualifiers: Urinary tract infection type: site unspecified Hematuria presence: with hematuria Qualified Code(s): N39.0 - Urinary tract infection, site not specified Condition: Stable Disposition: ADMITTED INPATIENT Admitting Provider: Hospitalist - Dr. Moore Unit Admitted: Surgical Floor
[2017-06-22] MEDS ORDERED: METOCLOPRAMIDE HCL INJ/PF 10 MG/2 ML SDV IV ONE (20:32)
--- NOTE | 2017-06-22 21:40 | RADIOLOGY REPORT (SQ) ---
EXAM DESCRIPTION: CT LTD RENAL STONE PROTOCOL ON COMPLETED DATE/TIME: 06/22/2017 9:27 pm REASON FOR STUDY: Lt flank pain COMPARISON: 01/19/2017 TECHNIQUE: CT scan of the abdomen and pelvis performed without intravenous or oral contrast. Images reviewed with lung, soft tissue, and bone windows. Reconstructed coronal and sagittal MPR images revi ewed. All images stored on PACS. All CT scanners at this facility use dose modulation, iterative reconstruction, and/or weight based d osing when appropriate to reduce radiation dose to as low as reasonably achievable (ALARA). [facility]: Dose Right [facility]: CareDose [facility]: Dose Right [facility]: Teradose 4D [facility]: Smart Selftrade RADIATION DOSE: CT Rad equipment meets quality standard of care and radiation dose reduction techniq ues were employed. CTDIvol: 17.6 mGy. DLP: 1024 mGy-cm.mGy. LIMITATIONS: None. FINDINGS: LOWER CHEST: No significant findings. No nodules or infiltrates. NON-CONTRASTED LIVER, SPLEEN, ADRENALS: Evaluation limited by lack of IV contrast. No identified sign ificant masses. PANCREAS: No masses. No peripancreatic inflammatory changes. GALLBLADDER: No identified stones by CT criteria. No inflammatory changes to suggest cholecystitis. RIGHT KIDNEY AND URETER: No suspicious masses. Assessment limited by lack of IV contrast. Nonobstru cting calculi. No hydronephrosis or hydroureter. LEFT KIDNEY AND URETER: No suspicious masses. Assessment limited by lack of IV contrast. No signifi cant calcifications. Moderate hydronephrosis and hydroureter secondary to 3 less than 5 mm distal u reteral calculi proximal to the UV junction. AORTA AND RETROPERITONEUM: No aneurysm. No retroperitoneal masses or adenopathy. BOWEL AND PERITONEAL CAVITY: No obvious masses or inflammatory changes. No free fluid. APPENDIX: Normal. PELVIS, BLADDER, AND ABDOMINAL WALL:No abnormal masses. No free fluid. Bladder normal. BONES: No significant findings. OTHER: No other significant finding. IMPRESSION: Milder moderate obstructive changes on the left secondary to 3 tiny calculi in the dista l left ureter. Bilateral nonobstructive nephrolithiasis. COMMENT: Quality ID # [id number]: Final reports with documentation of one or more dose reduction techniques (e.g., Automated exposure control, adjustment of the mA and/or kV according to patient size, use of iterative reconstruction technique) TECHNICAL DOCUMENTATION: JOB ID: [id number] [employer]- All Rights Reserved Reading location - IP/workstation name: [email or web address]
[2017-06-22] MEDS ORDERED: ACETAMINOPHEN 325 MG TABLET PO PRN (23:36)
[2017-06-22] MEDS ORDERED: LACTULOSE SYRUP 20 GM/30 ML UDCUP PO ONE (23:36)
[2017-06-22] MEDS ORDERED: DEXTROSE 50%-WATER 25 GM/50 ML DISP.SYRIN IV PRN ×2 (23:36)
[2017-06-22] MEDS ORDERED: ONDANSETRON HCL INJ/PF 4 MG/2 ML SDV IV PRN (23:36)
[2017-06-22] MEDS ORDERED: GLUCAGON,HUMAN RECOMB 1 MG INJ SUBCUT PRN (23:36)
[2017-06-22] MEDS ORDERED: DEXTROSE 40% GEL 15 GM TUBE PO PRN ×2 (23:36)
[2017-06-22] MEDS ORDERED: MAGNESIUM HYDROXIDE SUSP 30 ML UDCUP PO PRN (23:36)
[2017-06-22] MEDS ORDERED: HYDRALAZINE HCL INJ/PF 20 MG/1 ML SDV IV PRN (23:36)
[2017-06-23] MEDS: NORMAL SALINE 1000 ML 1,000 ML IV SCH ×3 (00:58→07:22)
[2017-06-23] MEDS: MORPHINE SULFATE 10 MG/ML INJ IV PRN ×6 (00:59→12:24)
[2017-06-23] MEDS: HEPARIN SOD (PORCINE) 5,000 UNIT/ML 1 ML SYRINGE SUBCUT SCH ×2 (05:50→22:40)
--- NOTE | 2017-06-23 06:20 | PDOC H&P ---
History of Present Illness Admission Date/PCP: 06/22/17 23:05 VASQUEZ DOSHI PA-C Patient complains of: Left-sided flank pain History of Present Illness: NAGI BARLOW is a 27 year old female with a past medical history of recurrent left-sided nephrolithiasis. Patient presents 7 days after initiation of flank pain not improved with outpatient regiment of Flomax, Keflex and symptomatic management. She returns with leukocytosis, nausea without vomiting. A CT reveals moderate left-sided hydronephrosis with nephrolithiasis. Urology Dr. Welch is consulted. She started on empiric Rocephin and referred to the hospitalist for admission. Past Medical History Pulmonary Medical History: Reports: Asthma GI Medical History: Reports: Gastroesophageal Reflux Disease Psychiatric Medical History: Reports: Attention Deficit Hyperactivity Disorder, Depression Past Surgical History Past Surgical History: Reports: Tonsillectomy Social History Information Source: Patient Smoking Status: Never Smoker Frequency of Alcohol Use: Occasional Hx Recreational Drug Use: No Drugs: None Hx Prescription Drug Abuse: No - Advance Directive Resuscitation Status: Full Code Family History Family History: Arthritis, CAD, CVA, DM, Hyperlipidemia, Hypertension, Thyroid Disfunction Parental Family History Reviewed: Yes Children Family History Reviewed: Yes Sibling(s) Family History Reviewed.: Yes Medication/Allergy Home Medications: Ciprofloxacin HCl [Cipro 500 mg Tablet] 500 mg PO BID #20 tablet 05/25/16 Fluconazole [Diflucan] 150 mg PO ONCE PRN #1 tablet 05/25/16 Ondansetron HCl [Zofran 4 mg Tablet] 1 - 2 tab PO Q4H PRN #20 tablet 05/25/16 Oxycodone HCl/Acetaminophen [Percocet 5-325 mg Tablet] 1 - 2 tab PO ASDIR PRN # 25 tablet 05/25/16 Prazosin HCl [Prazosin HCl] 1 mg PO QHS 05/25/16 Quetiapine Fumarate [Seroquel Xr] 400 mg PO DAILY 05/25/16 Vortioxetine Hydrobromide [Brintellix] 10 mg PO DAILY 05/25/16 Promethazine HCl [Phenergan 25 mg Tablet] 1 - 2 tab PO Q6H PRN #20 tablet Sulfamethoxazole/Trimethoprim [Septra-Ds 800-160 mg Tablet] 1 tab PO NOW #20 tablet 08/08/16 Cephalexin Monohydrate [Keflex 500 mg Capsule] 500 mg PO BID #10 capsule Ondansetron HCl [Zofran 4 mg Tablet] 1 - 2 tab PO Q4H PRN #20 tablet 12/07/16 Oxycodone HCl/Acetaminophen [Percocet 5-325 mg Tablet] 1 - 2 tab PO ASDIR PRN # 15 tablet 12/07/16 Oxycodone HCl/Acetaminophen [Percocet 5-325 mg Tablet] 1 - 2 tab PO ASDIR PRN # 15 tablet 01/19/17 Promethazine HCl [Phenergan 25 mg Tablet] 25 - 50 mg PO ASDIR PRN #12 tablet 10/28 Tamsulosin HCl [Flomax 0.4 mg Cap.sr] 0.4 mg PO DAILY #7 cap.sr.24h 01/19/17 Ondansetron [Zofran Odt 4 mg Tablet] 1 - 2 tab PO Q4H PRN #15 tab.rapdis Oxycodone HCl/Acetaminophen [Percocet 5-325 mg Tablet] 1 - 2 tab PO Q4H PRN #15 tablet 01/27/17 Phenazopyridine HCl [Pyridium 200 mg Tablet] 200 mg PO TID #15 tablet 01/27/17 Promethazine HCl [Phenergan 25 mg Tablet] 1 - 2 tab PO Q6H PRN #15 tablet Cephalexin Monohydrate [Keflex 500 mg Capsule] 500 mg PO BID #20 capsule Fluconazole [Diflucan] 150 mg PO ONCE PRN #1 tablet 06/21/17 Oxycodone HCl/Acetaminophen [Percocet 5-325 mg Tablet] 1 - 2 tab PO ASDIR PRN # 20 tablet 06/21/17 Promethazine HCl [Phenergan 25 mg Tablet] 25 - 50 mg PO ASDIR PRN #12 tablet 12/29 Tamsulosin HCl [Flomax 0.4 mg Cap.sr] 0.4 mg PO DAILY #7 cap.sr.24h 06/21/17 Allergies/Adverse Reactions: Sulfa (Sulfonamide Antibiotics) Allergy (Verified 06/22/17 17:05) Hives aspirin [Aspirin] Adverse Reaction (Intermediate, Verified 06/22/17 17:05) Abdominal pain Review of Systems Constitutional: ABSENT: chills, fever(s), headache(s), weight gain, weight loss Eyes: ABSENT: visual disturbances Ears: ABSENT: hearing changes Cardiovascular: ABSENT: chest pain, dyspnea on exertion, edema, orthropnea, palpitations Respiratory: ABSENT: cough, hemoptysis Gastrointestinal: ABSENT: abdominal pain, constipation, diarrhea, hematemesis, hematochezia, nausea, vomiting Genitourinary: ABSENT: dysuria, hematuria Musculoskeletal: ABSENT: joint swelling Integumentary: ABSENT: rash, wounds Neurological: ABSENT: abnormal gait, abnormal speech, confusion, dizziness, focal weakness, syncope Psychiatric: ABSENT: anxiety, depression, homidical ideation, suicidal ideation Endocrine: ABSENT: cold intolerance, heat intolerance, polydipsia, polyuria Hematologic/Lymphatic: ABSENT: easy bleeding, easy bruising Physical Exam Vital Signs: Temp Pulse Resp BP Pulse Ox 98.3 F 76 16 110/70 100 06/23/17 03:25 06/23/17 03:25 06/23/17 02:51 06/23/17 03:25 06/23/17 03:25 Intake & Output 06/21/17 06/22/17 06/23/17 11:59 11:59 11:59 Weight 100.3 kg General appearance: PRESENT: cooperative, mild distress. ABSENT: disheveled, thin Head exam: PRESENT: atraumatic, normocephalic Eye exam: PRESENT: conjunctiva pink, EOMI, PERRLA. ABSENT: scleral icterus Ear exam: PRESENT: normal external ear exam Mouth exam: PRESENT: moist, tongue midline Neck exam: ABSENT: carotid bruit, JVD, lymphadenopathy, thyromegaly Respiratory exam: PRESENT: clear to auscultation cammie. ABSENT: rales, rhonchi, wheezes Cardiovascular exam: PRESENT: RRR. ABSENT: diastolic murmur, rubs, systolic murmur Pulses: PRESENT: normal dorsalis pedis pul Vascular exam: PRESENT: normal capillary refill GI/Abdominal exam: PRESENT: normal bowel sounds, soft. ABSENT: distended, guarding, mass, organolmegaly, rebound, tenderness Rectal exam: PRESENT: deferred Gentrourinary exam: PRESENT: other - Left-sided flank pain. ABSENT: ecchymosis , erythema, lacerations, lesions, scrotal swelling, testicular tenderness, urethral discharge, indwelling catheter Extremities exam: PRESENT: full ROM. ABSENT: calf tenderness, clubbing, pedal edema Neurological exam: PRESENT: alert, awake, oriented to person, oriented to place , oriented to time, oriented to situation, CN II-XII grossly intact. ABSENT: motor sensory deficit Psychiatric exam: PRESENT: appropriate affect, normal mood. ABSENT: homicidal ideation, suicidal ideation Skin exam: PRESENT: dry, intact, warm. ABSENT: cyanosis, rash Results Impressions: Limited or Localized CT 06/22/17 20:16 IMPRESSION: Milder moderate obstructive changes on the left secondary to 3 tiny calculi in the distal left ureter. Bilateral nonobstructive nephrolithiasis. Assessment & Plan - Diagnosis (1) Kidney stone on left side Is this a current diagnosis for this admission?: Yes Plan: Medical bed admission, IV fluid challenge, symptomatic management, empiric antibiotics and urology consultation. (2) Urinary tract infection Qualifiers: Urinary tract infection type: site unspecified Hematuria presence: with hematuria Qualified Code(s): N39.0 - Urinary tract infection, site not specified; R31.9 - Hematuria, unspecified; R31.9 - Hematuria, unspecified Is this a current diagnosis for this admission?: Yes Plan: Empiric antibiotics initiated follow-up CBC and urine culture. (3) Vomiting Is this a current diagnosis for this admission?: Yes Plan: Secondary to #1, correction of #1 and symptomatic management - Time Time Spent: 30 to 50 Minutes - Inpatient Certification Medical Necessity: Need Close Monitoring Due to Risk of Patient Decompensation
[2017-06-23 07:38] LABS: ABSOLUTE EOSINOPHILS # (AUTO) 0.2 10^3/uL (0.0-0.6); ABSOLUTE MONOCYTES (AUTO) 0.8 10^3/uL (0.1-1.4); ABSOLUTE NEUT (AUTO) 5.3 10^3/uL (1.7-8.2); BASOPHILS % (AUTO) 0.3 % (0-2); EOSINOPHILS % (AUTO) 2.4 % (0-6); HEMATOCRIT 35.2 % (36.0-47.0); HEMOGLOBIN 11.8 g/dL (12.0-15.5); LYMPHOCYTES % (AUTO) 31.7 % (13-45); MEAN CORPUSCULAR HEMOGLOBIN 28.9 pg (27.0-33.4); MEAN CORPUSCULAR HGB CONC 33.4 g/dL (32.0-36.0); MEAN CORPUSCULAR VOLUME 87 fl (80-97); MONOCYTES % (AUTO) 8.9 % (3-13); PLATELET COUNT 199 10^3/uL (150-450); RED BLOOD COUNT 4.07 10^6/uL (3.72-5.28); RED CELL DISTRIBUTION WIDTH 13.3 % (11.5-14.0); SEGMENTED NEUTROPHILS % (AUTO) 56.7 % (42-78); TOTAL CELLS COUNTED % (AUTO) 100 %; WHITE BLOOD COUNT 9.4 10^3/uL (4.0-10.5)
[2017-06-23 07:49] LABS: ANION GAP 7 (5-19); BLOOD UREA NITROGEN 11 mg/dL (7-20); CARBON DIOXIDE 27 mmol/L (22-30); CHLORIDE 107 mmol/L (98-107); GLUCOSE 79 mg/dL (75-110); POTASSIUM 4.2 mmol/L (3.6-5.0); SODIUM 140.6 mmol/L (137-145)
[2017-06-23] MEDS ORDERED: ONDANSETRON HCL INJ/PF 4 MG/2 ML SDV IV PRN (08:00)
[2017-06-23] MEDS: CEFTRIAXONE SODIUM 1,000 MG in NORMAL SALINE 100 ML IV SCH (09:47)
[2017-06-23] MEDS: DOCUSATE SODIUM 100 MG CAPSULE PO SCH ×2 (09:48→17:46)
[2017-06-23] MEDS: TAMSULOSIN HCL 0.4 MG CAP.SR.24H PO SCH (10:00)
[2017-06-23] MEDS ORDERED: CEFTRIAXONE 1 GM/D5W RTU 1 GM/50 ML RTUPB IV SCH (10:00)
[2017-06-23] MEDS ORDERED: (PENDING PHARMACY ID) (Quetiapine Fumarate [Seroquel Xr] 400 MG) PO SCH (10:00)
[2017-06-23] MEDS ORDERED: MIDAZOLAM 2 MG/2 ML INJ ONE (10:40)
[2017-06-23] MEDS ORDERED: FENTANYL CITRATE INJ/PF 100 MCG/2 ML AMPUL ONE ×2 (10:40)
[2017-06-23] MEDS ORDERED: ONDANSETRON HCL INJ/PF 4 MG/2 ML SDV ONE (10:40)
[2017-06-23] MEDS ORDERED: PROPOFOL INJ 200 MG/20 ML VIAL IV ONE (10:41)
--- NOTE | 2017-06-23 11:44 | Operative Report ---
Operative Report DATE OF SURGERY: 06/23/17 PREOPERATIVE DIAGNOSIS: left ureteral stone with obstruction POSTOPERATIVE DIAGNOSIS: Same OPERATION: Cystoscopy attempt at left retrograde insertion of double-J catheter SURGEON: TRISHA BOURNE TISSUE REMOVED OR ALTERED: None COMPLICATIONS: None ESTIMATED BLOOD LOSS: 0 INTRAOPERATIVE FINDINGS: Normal bladder both orifices are normal in position no evidence of any stones in the bladder PROCEDURE: With the patient in the supine position after the induction of anesthesia the whole area prepped and scrubbed in lithotomy position. After that #21 cystoscope sheath was inserted under direct vision bladder inspected normal both orifices identified the left orifice was identified #5 urethral catheter inserted and attempt at retrograde was blocked with the stone then we try to manipulate and insert guidewires but all attempts were failing because of the stone and the edema of the ureter from the infection. At this point we we abandoned the procedure and emptied the bladder and took the cystoscope out patient tolerated the procedure well.
--- NOTE | 2017-06-23 12:44 | RADIOLOGY REPORT (SQ) ---
EXAM DESCRIPTION: KUB/ABDOMEN (SINGLE VIEW) COMPLETED DATE/TIME: 06/23/2017 12:10 pm REASON FOR STUDY: ATTEMPTED LEFT SIDE RETROGRADE / STENT PLCMT IN CYSTO COMPARISON: None. FLUOROSCOPY TIME: 4 seconds 1 images saved to PACS. TECHNIQUE: Intra-operative images acquired during surgical procedure to evaluate progress. NUMBER OF IMAGES: 1 LIMITATIONS: None. FINDINGS: Fluoroscopic image was obtained during performance of a retrograde pyelogram. Please refe r to the surgeon's operative report for additional information IMPRESSION: IMAGE(S) OBTAINED DURING PROCEDURE. COMMENT: Quality ID [id number]: Final reports for procedures using fluoroscopy that document radiation exp osure indices, or exposure time and number of fluorographic images (if radiation exposure indices are not available) Please consult full operative report of the attending physician for description of the procedure. TECHNICAL DOCUMENTATION: JOB ID: [id number] [employer]- All Rights Reserved Reading location - IP/workstation name: [email or web address]
--- NOTE | 2017-06-23 12:45 | RADIOLOGY REPORT (SQ) ---
EXAM DESCRIPTION: NO CHG FLUORO COMPLETE DATE/TIME: 06/23/2017 12:10 pm REASON FOR STUDY: ATTEMPTED LEFT SIDE RETROGRADE / STENT PLCMT IN CYSTO FINDINGS: Please see combined report for performance of procedure and radiologic supervision and int erpretation. IMPRESSION: Please see combined report for performance of procedure and radiologic supervision and i nterpretation. Reading location - IP/workstation name: [email or web address]
[2017-06-23] MEDS ORDERED: LORAZEPAM INJ 2 MG/1 ML VIAL IV ONE (14:15)
[2017-06-23] MEDS ORDERED: MORPHINE SULFATE 10 MG/ML INJ IV ONE (14:15)
[2017-06-23] MEDS ORDERED: NORMAL SALINE 1000 ML 1,000 ML IV PRN (16:06)
--- NOTE | 2017-06-23 16:49 | PDOC PROGRESS REPORT ---
Subjective Progress Note for:: 06/23/17 Subjective:: Attempted extraction of stone by urologist Dr. Welch today unsuccessful. I spoke with Dr. Prince Judd of urologist at [facility] in [place], [place] about transferring patient day for percutaneous nephrostomy, but he stated patient currently not septic, no fever, white count improving. He recommended treating with pain management and continued IV antibiotics and discharged on p.o. antibiotics if better and to follow-up with him as outpatient. If patient condition worsens or if fever, he stated to transfer the patient then. Otherwise he states they were just going to observe the patient and if remains stable discharge, that no emergent procedure indicated at this time. -Patient denies fever or chills, no chest pain or shortness of breath or palpitations. Reason For Visit: NEPHROLITHIASIS, HYDRONEPHROSIS, UTI MORBID Physical Exam Vital Signs: Temp Pulse Resp BP Pulse Ox 98.3 F 82 16 137/63 H 97 06/23/17 15:00 06/23/17 15:00 06/23/17 15:00 06/23/17 15:00 06/23/17 15:00 Intake & Output 06/22/17 06/23/17 06/24/17 06:59 06:59 06:59 Intake Total 1550 Output Total 1000 Balance 550 Weight 100.3 kg 100.3 kg GEN: NAD, well-developed, well-nourished CV: RRR, NL S1S2 LUNGS: CTA bilaterally ABDOMEN Soft, moderate left flank tenderness, +BS EXTERMITIES: No e/c/c NEURO: Alert, oriented 3, nonfocal Results Laboratory Results: 06/23/17 07:09 06/23/17 07:09 06/23/17 06/23/17 07:09 07:09 WBC 9.4 RBC 4.07 Hgb 11.8 L Hct 35.2 L MCV 87 MCH 28.9 MCHC 33.4 RDW 13.3 Plt Count 199 Seg Neutrophils % 56.7 Lymphocytes % 31.7 Monocytes % 8.9 Eosinophils % 2.4 Basophils % 0.3 Absolute Neutrophils 5.3 Absolute Lymphocytes 3.0 Absolute Monocytes 0.8 Absolute Eosinophils 0.2 Absolute Basophils 0.0 Sodium 140.6 Potassium 4.2 Chloride 107 Carbon Dioxide 27 Anion Gap 7 BUN 11 Creatinine 0.76 Est GFR ( Amer) > 60 Est GFR (Non-Af Amer) > 60 Glucose 79 Calcium 8.0 L Impressions: Limited or Localized CT 06/22/17 20:16 IMPRESSION: Milder moderate obstructive changes on the left secondary to 3 tiny calculi in the distal left ureter. Bilateral nonobstructive nephrolithiasis. Fluoroscopy 06/23/17 00:00 IMPRESSION: Please see combined report for performance of procedure and radiologic supervision and interpretation. KUB X-Ray 06/23/17 00:00 IMPRESSION: IMAGE(S) OBTAINED DURING PROCEDURE. Assessment & Plan - Plan Summary Plan Summary: (1) Kidney stone on left side Is this a current diagnosis for this admission?: Yes Plan: Continue IV fluid, IV Rocephin. -Attempted extraction of stone by urologist Dr. Welch today unsuccessful. I spoke with Dr. Prince Judd of urologist at [facility] in [place], [place] about transferring patient day for percutaneous nephrostomy, but he stated patient currently not septic, no fever, white count improving. He recommended treating with pain management and continued IV antibiotics and discharged on p.o. antibiotics if better and to follow-up with him as outpatient. If patient condition worsens or if fever, he stated to transfer the patient then. Otherwise he states they were just going to observe the patient and if remains stable discharge, that no emergent procedure indicated at this time. -Patient denies fever or chills, no chest pain or shortness of breath or palpitations. -We will continue to monitor closely. -Toradol IV, morphine as needed for pain. -Above plan discussed with patient and her family at bedside and they are in agreement. The estimated leaving [facility] is too far anyway if all they may do is send patient back home. (2) Urinary tract infection Qualifiers: Urinary tract infection type: site unspecified Hematuria presence: with hematuria Qualified Code(s): N39.0 - Urinary tract infection, site not specified; R31.9 - Hematuria, unspecified; R31.9 - Hematuria, unspecified Is this a current diagnosis for this admission?: Yes Plan: Continue empiric antibiotics, follow-up CBC and urine culture. (3) Vomiting Is this a current diagnosis for this admission?: Yes Plan: Secondary to #1, correction of #1 and symptomatic management
[2017-06-23] MEDS ORDERED: MORPHINE SULFATE 10 MG/ML INJ IV PRN (16:54)
[2017-06-23] MEDS: KETOROLAC TROMETHAMINE INJ/PF 30 MG/1 ML SDV IV PRN (19:00)
[2017-06-24] MEDS ORDERED: MORPHINE SULFATE 10 MG/ML INJ ONE ×2 (03:34→08:19)
[2017-06-24] MEDS: KETOROLAC TROMETHAMINE INJ/PF 30 MG/1 ML SDV IV PRN ×2 (03:44→11:33)
[2017-06-24] MEDS: HEPARIN SOD (PORCINE) 5,000 UNIT/ML 1 ML SYRINGE SUBCUT SCH (05:33)
[2017-06-24 07:06] LABS: ABSOLUTE BASOPHILS # (AUTO) 0.1 10^3/uL (0.0-0.2); ABSOLUTE EOSINOPHILS # (AUTO) 0.3 10^3/uL (0.0-0.6); ABSOLUTE LYMPHOCYTES (AUTO) 2.6 10^3/uL (0.5-4.7); ABSOLUTE MONOCYTES (AUTO) 0.7 10^3/uL (0.1-1.4); ABSOLUTE NEUT (AUTO) 4.2 10^3/uL (1.7-8.2); BASOPHILS % (AUTO) 1.2 % (0-2); EOSINOPHILS % (AUTO) 3.6 % (0-6); HEMATOCRIT 36.2 % (36.0-47.0); HEMOGLOBIN 12.3 g/dL (12.0-15.5); LYMPHOCYTES % (AUTO) 32.6 % (13-45); MEAN CORPUSCULAR HEMOGLOBIN 28.9 pg (27.0-33.4); MEAN CORPUSCULAR VOLUME 85 fl (80-97); MONOCYTES % (AUTO) 9.3 % (3-13); PLATELET COUNT 232 10^3/uL (150-450); RED BLOOD COUNT 4.25 10^6/uL (3.72-5.28); RED CELL DISTRIBUTION WIDTH 13.3 % (11.5-14.0); SEGMENTED NEUTROPHILS % (AUTO) 53.3 % (42-78); TOTAL CELLS COUNTED % (AUTO) 100 %; WHITE BLOOD COUNT 7.9 10^3/uL (4.0-10.5)
[2017-06-24 07:21] LABS: ANION GAP 8 (5-19); BLOOD UREA NITROGEN 13 mg/dL (7-20); CALCIUM 8.5 mg/dL (8.4-10.2); CARBON DIOXIDE 27 mmol/L (22-30); CHLORIDE 107 mmol/L (98-107); GLUCOSE 108 mg/dL (75-110); POTASSIUM 4.5 mmol/L (3.6-5.0)
[2017-06-24] MEDS: TAMSULOSIN HCL 0.4 MG CAP.SR.24H PO SCH (10:17)
[2017-06-24] MEDS: CEFTRIAXONE SODIUM 1,000 MG in NORMAL SALINE 100 ML IV SCH (10:17)
[2017-06-24] MEDS: DOCUSATE SODIUM 100 MG CAPSULE PO SCH (10:17)
[2017-06-24] MEDS ORDERED: OXYCODONE-ACETAMINOPHEN 5-325 MG TABLET PO PRN (10:49)
--- NOTE | 2017-06-24 11:55 | PDOC TRANSFER SUMMARY ---
General Admission Date/PCP: 06/22/17 23:05 VASQUEZ DOSHI PA-C Admission Date: 06/22/17 Transfer Date: 06/24/17 Accepting Facility: [facility] Accepting Physician: Dr. Sarah Carpio Resuscitation Status: Full Code - Transfer Diagnosis (1) Kidney stone on left side Is this a current diagnosis for this admission?: Yes (2) Urinary tract infection Is this a current diagnosis for this admission?: Yes (3) Vomiting Is this a current diagnosis for this admission?: Yes - Transfer Medications Home Medications: Cephalexin Monohydrate [Keflex 500 mg Capsule] 500 mg PO BID 06/23/17 Omeprazole 40 mg PO DAILY 06/23/17 Oxycodone HCl/Acetaminophen [Percocet 5-325 mg Tablet] 1 tab PO Q4HP PRN Promethazine HCl 25 mg PO Q4HP PRN 06/23/17 Tamsulosin HCl [Flomax 0.4 mg Cap.sr] 0.4 mg PO DAILY 06/23/17 Transfer Medications: Current Medications Acetaminophen (Tylenol 325 Mg Tablet) 650 mg PO Q6HP PRN PRN Reason: FOR PAIN OR TEMP Stop: 07/22/17 23:35 Last Admin: 06/23/17 08:35 Dose: 650 mg Dextrose (Dextrose Inj 50% Syringe (25 Gm/50 Ml)) 12.5 gm IV PRN PRN; Protocol PRN Reason: FOR BG 50-69 IN ALERT PATIENT Stop: 07/22/17 23:35 Dextrose (Dextrose Inj 50% Syringe (25 Gm/50 Ml)) 25 gm IV PRN PRN; Protocol PRN Reason: See Label Comments Stop: 07/22/17 23:35 Docusate Sodium (Colace 100 Mg Capsule) 100 mg PO BID NOAH Stop: 07/23/17 09:59 Last Admin: 06/24/17 10:17 Dose: 100 mg Glucagon (Glucagen Inj 1 Mg Vial) 1 mg SUBCUT PRN PRN; Protocol PRN Reason: Evaluate for BG < 70 Stop: 07/22/17 23:35 Glucose (Glutose 40% Gel 15 Gm Tube) 15 gm PO PRN PRN; Protocol PRN Reason: For BG 50-69 in Alert Patient Stop: 07/22/17 23:35 Glucose (Glutose 40% Gel 15 Gm Tube) 30 gm PO PRN PRN; Protocol PRN Reason: FOR BG < 50 IN ALERT PATIENT Stop: 07/22/17 23:35 Heparin Sodium (Porcine) (Heparin Inj 5,000 Units/Ml 1 Ml Syringe) 5,000 unit SUBCUT Q8 NOAH Stop: 07/23/17 05:59 Last Admin: 06/24/17 05:33 Dose: 5,000 unit Hydralazine HCl (Apresoline Inj/Pf 20 Mg/1 Ml Sdv) 10 mg IV Q6HP PRN PRN Reason: Sbp>160 Stop: 07/22/17 23:35 Sodium Chloride (Nacl 0.9% 1000 Ml Iv Soln) 1,000 mls @ 500 mls/hr IV X 3 BAGS NOAH Stop: 07/22/17 23:44 Last Admin: 06/23/17 07:22 Dose: 1,000 ml Ceftriaxone Sodium 1,000 mg/ (Sodium Chloride) 100 mls @ 200 mls/hr IV DAILY [facility] Stop: 06/30/17 09:59 Last Admin: 06/24/17 10:17 Dose: 1,000 mg Sodium Chloride (Nacl 0.9% 1000 Ml Iv Soln) 1,000 mls @ 100 mls/hr IV CONTINUOUS PRN PRN Reason: THIS MED IS NOT "PRN" Stop: 07/23/17 16:05 Last Admin: 06/23/17 16:26 Dose: 1,000 ml Ketorolac Tromethamine (Toradol Inj/Pf 30 Mg/1 Ml Sdv) 30 mg IV Q8HP PRN PRN Reason: FOR PAIN Stop: 06/28/17 16:55 Last Admin: 06/24/17 03:44 Dose: 30 mg Magnesium Hydroxide (Milk Of Magnesia 30 Ml Udcup) 30 ml PO HSP PRN PRN Reason: FOR CONSTIPATION Stop: 07/22/17 23:35 Morphine Sulfate (Morphine 10 Mg/Ml Inj) 2 mg IV Q3HP PRN PRN Reason: FOR PAIN SCALE 4-5 Stop: 06/29/17 23:35 Last Admin: 06/23/17 12:24 Dose: 2 mg Morphine Sulfate (Morphine 10 Mg/Ml Inj) 4 mg IV Q6HP PRN PRN Reason: SEVERE PAIN Stop: 06/30/17 16:53 Last Admin: 06/24/17 08:22 Dose: 4 mg Ondansetron HCl (Zofran Inj/Pf 4 Mg/2 Ml Sdv) 4 mg IV Q8HP PRN PRN Reason: FOR NAUSEA/VOMITING Stop: 07/22/17 23:35 Oxycodone/Acetaminophen (Percocet 5-325 Mg Tablet) 2 tab PO Q6HP PRN PRN Reason: PAIN SCALE 3-5 Stop: 07/01/17 10:48 Patient Own Medication (Quetiapine Fumarate [Seroquel Xr]) 400 mg PO .DAILY [facility] Stop: 07/23/17 09:59 Tamsulosin HCl (Flomax 0.4 Mg Cap.Sr) 0.4 mg PO DAILY NOAH Stop: 07/23/17 09:59 Last Admin: 06/24/17 10:17 Dose: 0.4 mg - Allergies Allergies/Adverse Reactions: Sulfa (Sulfonamide Antibiotics) Allergy (Verified 06/22/17 17:05) Hives aspirin [Aspirin] Adverse Reaction (Intermediate, Verified 06/22/17 17:05) Abdominal pain Hospital Course Hospital Course: Patient presented on 06/22/17 as seen HPI below: "NAGI BARLOW is a 27 year old female with a past medical history of recurrent left-sided nephrolithiasis. Patient presents 7 days after initiation of flank pain not improved with outpatient regiment of Flomax, Keflex and symptomatic management. She returns with leukocytosis, nausea without vomiting. A CT reveals moderate left-sided hydronephrosis with nephrolithiasis. Urology Dr. Welch is consulted. She started on empiric Rocephin and referred to the hospitalist for admission." White blood cells was elevated at 12.8. Patient was admitted to hospitalist service and treated with IV fluid. She was also started on Rocephin 1 g daily. Patient was taken to the OR by urologist Dr. Welch on 06/23/17 and his operative report is as below" "INTRAOPERATIVE FINDINGS: Normal bladder both orifices are normal in position no evidence of any stones in the bladder. PROCEDURE: With the patient in the supine position after the induction of anesthesia the whole area prepped and scrubbed in lithotomy position. After that #21 cystoscope sheath was inserted under direct vision bladder inspected normal both orifices identified the left orifice was identified #5 urethral catheter inserted and attempt at retrograde was blocked with the stone then we try to manipulate and insert guidewires but all attempts were failing because of the stone and the edema of the ureter from the infection. At this point we we abandoned the procedure and emptied the bladder and took the cystoscope out patient tolerated the procedure well." The urologist stated that he was unable to relieve the obstruction. Patient with continued significant left flank pain and requiring morphine 4 mg every 6 hours, Toradol 30 mg IV every 8 hours, and now Percocet 2 tabs every 6 hours as needed but still complaining of significant pain. Dr. Welch spoke with Dr. Tre Aceves of interventional radiology at [place] for percutaneous nephrostomy tube placement to relieve the obstruction and he recommended transferring the patient to their hospitalist service and for them to consult him when the patient arrives. Dr. Welch, the urologist here, also spoke with Dr. Moore, urologist at [facility] in [place], and he recommended calling the hospitalist's service. The patient has been graciously accepted by Dr. Sarah Carpio of the hospitalist service and patient is being transferred in stable condition. Of note is that urine culture is not growing E. coli that is pansensitive, including to Rocephin. White blood cells count has improved to 7.9. Blood cultures no growth 24 hours. Thank you. Physical Exam Vital Signs: Temp Pulse Resp BP Pulse Ox 98.1 F 94 18 99/81 L 95 06/24/17 03:21 06/24/17 03:21 06/24/17 03:21 06/24/17 03:21 06/24/17 03:21 Intake & Output 06/23/17 06/24/17 06/25/17 06:59 06:59 06:59 Intake Total 1790 Output Total 1000 Balance 790 Weight 100.3 kg 103.4 kg GEN: NAD, well-developed, well-nourished CV: RRR, NL S1S2 LUNGS: CTA bilaterally ABDOMEN Soft, significant left flank tenderness, no rebound or guarding +BS EXTERMITIES: No e/c/c NEURO: Alert, oriented 3, nonfocal Results Laboratory Results: 06/24/17 06:34 06/24/17 06:34 06/24/17 06/24/17 06:34 06:34 WBC 7.9 RBC 4.25 Hgb 12.3 Hct 36.2 MCV 85 MCH 28.9 MCHC 34.0 RDW 13.3 Plt Count 232 Seg Neutrophils % 53.3 Lymphocytes % 32.6 Monocytes % 9.3 Eosinophils % 3.6 Basophils % 1.2 Absolute Neutrophils 4.2 Absolute Lymphocytes 2.6 Absolute Monocytes 0.7 Absolute Eosinophils 0.3 Absolute Basophils 0.1 Sodium 142.0 Potassium 4.5 Chloride 107 Carbon Dioxide 27 Anion Gap 8 BUN 13 Creatinine 0.70 Est GFR ( Amer) > 60 Est GFR (Non-Af Amer) > 60 Glucose 108 Calcium 8.5 Impressions: Limited or Localized CT 06/22/17 20:16 IMPRESSION: Milder moderate obstructive changes on the left secondary to 3 tiny calculi in the distal left ureter. Bilateral nonobstructive nephrolithiasis. Fluoroscopy 06/23/17 00:00 IMPRESSION: Please see combined report for performance of procedure and radiologic supervision and interpretation. KUB X-Ray 06/23/17 00:00 IMPRESSION: IMAGE(S) OBTAINED DURING PROCEDURE.
[2017-06-24 12:16] VITALS: BP 126/72
== END 2017-06-24 13:00 | disposition short-term general hospital (02) | DRG 690 ==
LOC: ER 17:03 → EH 23:05 → 2N 06-23 03:08
PROVIDERS: ADMIT Internal Medicine; ATTEND Internal Medicine
PROC: 0TJB8ZZ Inspection of Bladder, Via Natural or Artificial Opening Endoscopic (ICD-10-PCS; principal; 2017-06-23 11:00)
DX: N13.6 Pyonephrosis (principal); Z68.41 Body mass index [BMI] 40.0-44.9, adult; N39.0 Urinary tract infection, site not specified; E66.01 Morbid (severe) obesity due to excess calories; B96.20 Unspecified Escherichia coli [E. coli] as the cause of diseases classified elsewhere; J45.909 Unspecified asthma, uncomplicated; K21.9 Gastro-esophageal reflux disease without esophagitis; F32.9 Major depressive disorder, single episode, unspecified; F90.9 Attention-deficit hyperactivity disorder, unspecified type; R31.9 Hematuria, unspecified; Z86.14 Personal history of Methicillin resistant Staphylococcus aureus infection; Z88.6 Allergy status to analgesic agent; Z88.2 Allergy status to sulfonamides; Z79.899 Other long term (current) drug therapy; Z82.61 Family history of arthritis; Z82.3 Family history of stroke; Z83.3 Family history of diabetes mellitus; Z82.49 Family history of ischemic heart disease and other diseases of the circulatory system; Z83.49 Family history of other endocrine, nutritional and metabolic diseases
CPT/HCPCS: 36415; 74018; 76380; 80048; 80053; 81001; 81025; 82803; 83605; 85025; 87040; 87086; 87088; 87186; 910; 96365; 96375; 96376; 99285; C1758; J0696; J1644; J1885; J2060; J2250; J2270; J2405; J2704; J2765; J3010; J7030

== ENCOUNTER 2017-09-12 07:47 | Emergency (ER) | payer OTHER ==
[2017-09-12] MEDS ORDERED: ONDANSETRON 4 MG TAB.RAPDIS PO ONE (08:46)
[2017-09-12] MEDS ORDERED: HYDROMORPHONE HCL INJ/PF 2 MG/ML AMPULE IM ONE (08:46)
--- NOTE | 2017-09-12 08:57 | ER Document Report ---
ED General - General Chief Complaint: Possible Kidney Stone Stated Complaint: FLANK PAIN Time Seen by Provider: 09/12/17 08:45 Mode of Arrival: Ambulatory Information source: Patient Notes: 27-year-old female with asthma, previous kidney stones presents with complaint of bilateral back pain that started 3 days prior to arrival. Patient describes the pain as aching, stabbing and intermittent. Left flank pain greater than right. Pain is worse with movement and relieved with rest. Patient states that 1 month prior to arrival she underwent nephrostomy tube placement as well as lithotripsy at [facility]. She denies any recent injury, dysuria , hematuria, fever. She has had nausea without vomiting. Patient is due to follow-up with her urologist in the next 2 weeks. She states that this pain is different from her previous pain she experienced with kidney stones. TRAVEL OUTSIDE OF THE [place] IN LAST 30 DAYS: No - HPI Onset: Last week Onset/Duration: Gradual Quality of pain: Achy, Stabbing Severity: Moderate Pain Level: 3 Associated symptoms: Nausea. denies: Fever, Vomiting Exacerbated by: Movement, Walking Relieved by: Denies Similar symptoms previously: Yes Recently seen / treated by doctor: Yes - Related Data Allergies/Adverse Reactions: Sulfa (Sulfonamide Antibiotics) Allergy (Verified 06/22/17 17:05) Hives aspirin [Aspirin] Adverse Reaction (Intermediate, Verified 06/22/17 17:05) Abdominal pain Past Medical History - General Information source: Patient, Relative, [facility] Records - Social History Smoking Status: Never Smoker Frequency of alcohol use: Occasional Drug Abuse: None Lives with: Family Family History: Arthritis, CAD, CVA, DM, Hyperlipidemia, Hypertension, Thyroid Disfunction Pulmonary Medical History: Reports: Hx Asthma Renal/ Medical History: Reports: Hx Kidney Stones. Denies: Hx Peritoneal Dialysis GI Medical History: Reports: Hx Gastroesophageal Reflux Disease Musculoskeltal Medical History: Reports Hx Musculoskeletal Trauma Skin Medical History: Reports Hx Cellulitis, Reports Hx MRSA Psychiatric Medical History: Reports: Hx Attention Deficit Hyperactivity Disorder, Hx Depression Traumatic Medical History: Reports: Hx Fractures - toe Past Surgical History: Reports: Hx Myringotomy, Hx Nose Surgery, Hx Tonsillectomy - Immunizations Immunizations up to date: Yes Hx Diphtheria, Pertussis, Tetanus Vaccination: Yes - unknown Review of Systems - Review of Systems Constitutional: denies: Chills, Fever EENT: denies: Blurred vision, Difficulty swallowing Cardiovascular: denies: Chest pain, Palpitations Respiratory: denies: Cough, Short of breath Gastrointestinal: Nausea. denies: Abdominal pain Genitourinary: denies: Dysuria, Hematuria Female Genitourinary: No symptoms reported. denies: Vaginal discharge, Vaginal bleeding, Vaginal odor Musculoskeletal: Back pain Skin: denies: Rash Hematologic/Lymphatic: denies: Easy bruising Neurological/Psychological: No symptoms reported Physical Exam - Vital signs Vitals: Temp Pulse Resp BP 98.1 F 83 20 123/76 09/12/17 07:56 09/12/17 07:56 09/12/17 07:56 09/12/17 07:56 Interpretation: No: Hypertensive, Febrile - Notes Notes: PHYSICAL EXAMINATION: GENERAL: Well-appearing, well-nourished and in no acute distress. HEAD: Atraumatic, normocephalic. EYES: Pupils equal round and reactive to light, extraocular movements intact, conjunctiva are normal. ENT: Nares patent, oropharynx clear without exudates. Moist mucous membranes. NECK: Normal range of motion, supple without lymphadenopathy LUNGS: Breath sounds clear to auscultation bilaterally and equal. No wheezes rales or rhonchi. HEART: Regular rate and rhythm without murmurs ABDOMEN: Soft, nontender, nondistended abdomen. No guarding, no rebound. No masses appreciated. Bilateral CVA tenderness left greater than right. Female : deferred Musculoskeletal: Normal range of motion, no pitting or edema. No cyanosis. Midline tenderness of the lumbar spine without step-off or deformity NEUROLOGICAL: Cranial nerves grossly intact. Normal speech, normal gait. Normal sensory, motor exams PSYCH: Normal mood, normal affect. SKIN: Warm, Dry, normal turgor, no rashes or lesions noted. Course - Re-evaluation Re-evalutation: Laboratory 09/12/17 09/12/17 09:11 09:11 Urine Color YELLOW Urine Appearance TURBID Urine pH 5.0 Ur Specific [place] 1.027 Urine Protein NEGATIVE Urine Glucose (UA) NEGATIVE Urine Ketones NEGATIVE Urine Blood NEGATIVE Urine Nitrite NEGATIVE Urine Bilirubin NEGATIVE Urine Urobilinogen 4.0 H Ur Leukocyte Esterase NEGATIVE Urine WBC (Auto) 3 Urine RBC (Auto) 1 Urine Bacteria (Auto) 1+ Squamous Epi Cells Auto 1 Amorphous Sediment Auto 3+ Urine Mucus (Auto) MANY Urine Ascorbic Acid NEGATIVE Urine HCG, Qual NEGATIVE 27-year-old female presents with bilateral low back pain that started 3 days prior to arrival without known injury. Patient was seen by myself upon arrival. Vital signs were reviewed. Patient is afebrile, normotensive and not hypoxic. Patient does not appear toxic or dehydrated. They are in no acute distress. Previous medical records and nursing notes reviewed. Bedside ultrasound was performed to assess for hydronephrosis which was absent. Urinalysis is within normal limits without evidence of infection or blood. 09/12/17 10:39 Patient received 1 mg of Dilaudid IM and reports an improvement of her pain. 09/12/17 10:40 Patient without red flag symptoms including fever, saddle anesthesia, urinary retention, fecal incontinence, history of IV drug use. 09/12/17 12:51 09/12/17 12:52 Patient provided the opportunity to ask questions, and express concerns. Discharge instructions discussed. Patient is agreeable with discharge home. Return indications explained and discussed with the patient who displays understanding. Patient encouraged to return to the emergency department immediately with any concerns. - Vital Signs Vital signs: Temp Pulse Resp BP Pulse Ox 97.7 F 73 16 109/89 H 100 09/12/17 10:58 09/12/17 10:58 09/12/17 10:58 09/12/17 10:58 09/12/17 10:58 - Laboratory Laboratory results interpreted by me: 09/12/17 09:11 Urine Urobilinogen 4.0 H Procedures - Ultrasound/Bedside Ultrasound/Bedside Time completed: 08:57 - Renal ultrasound was performed to assess for hydronephrosis which was absent. Discharge - Discharge Clinical Impression: Low back pain Qualifiers: Chronicity: acute Back pain laterality: left Sciatica presence: without sciatica Qualified Code(s): M54.5 - Low back pain Condition: Good Disposition: HOME, SELF-CARE Instructions: Low Back Pain ([facility]) Additional Instructions: Follow up with your physician tomorrow for further care or return to the ED IMMEDIATELY if symptoms worsen or new concerns occur. If you cannot afford to follow up with your primary care physician a list of low cost clinics have been provided at the end of your discharge papers as well. Prescriptions: Cyclobenzaprine HCl [Flexeril 10 mg Tablet] 10 mg PO TIDP PRN #15 tab PRN Reason: Hydrocodone/Acetaminophen [[place] 5-325 mg Tablet] 1 tab PO Q6H PRN #12 tablet PRN Reason: For Pain Scale 1-2 Ibuprofen [Motrin 600 mg Tablet] 600 mg PO TID #20 tablet Forms: Return to Work Referrals: VASQUEZ DOSHI PA-C [Primary Care Provider] - Follow up as needed
[2017-09-12 10:25] LABS: AMORPHOUS SEDIMENT,URINE 3+ /HPF; APPEARANCE,URINE TURBID; BILIRUBIN,URINE NEGATIVE (NEGATIVE); GLUCOSE, URINE NEGATIVE (NEGATIVE); KETONES,URINE NEGATIVE (NEGATIVE); LEUKOCYTE ESTERASE,URINE NEGATIVE (NEGATIVE); NITRITE,URINE NEGATIVE (NEGATIVE); PROTEIN,URINE NEGATIVE (NEGATIVE); URINE SPECIFIC GRAVITY 1.027
[2017-09-12 10:28] LABS: COLOR,URINE YELLOW
[2017-09-12 11:12] VITALS: BP 109/89
== END 2017-09-12 11:10 | disposition home or self-care (01) ==
LOC: ER 07:47
DX: M54.5 Low back pain (principal); R11.0 Nausea; J45.909 Unspecified asthma, uncomplicated; Z87.442 Personal history of urinary calculi; Z98.890 Other specified postprocedural states; Z88.2 Allergy status to sulfonamides
CPT/HCPCS: 99284; 96372; 81025; 81001; S0119; J1170; 36415

== ENCOUNTER 2018-03-30 05:10 | Emergency (ER) | payer OTHER ==
[2018-03-30] MEDS ORDERED: IPRATROPIUM/ALBUTEROL 0.5-2.5 MG/3 ML AMPUL NEB ONE (07:11)
[2018-03-30] MEDS ORDERED: KETOROLAC TROMETHAMINE 60 MG/2 ML SDV IM ONE (07:14)
--- NOTE | 2018-03-30 07:16 | ER Document Report ---
ED General - General Chief Complaint: Cough Stated Complaint: COUGH Time Seen by Provider: 03/30/18 06:26 TRAVEL OUTSIDE OF THE [place] IN LAST 30 DAYS: No - HPI Notes: Patient is a 27-year-old female that presents to the emergency department for chief complaint of cough and shortness of breath. Patient states she has not been feeling well for "a while". She will not exaggerate on how long that is. HPI is limited because patient is not wanting to answer my questions. She does state that she has been coughing a lot. And she states that she feels short of breath. She keeps stating that she wants to feel better. She has had breathing treatments in the past but does not currently have any at home but denies history of asthma and smoking. She did not get an influenza vaccine this year. Patient's mother states that a month ago she was diagnosed with urinary tract infection and did not take the antibiotics. Patient denies any fevers. Past Medical History: Negative Past Surgical History: Tonsillectomy, nephrostomy tubes Social History: Denies drugs alcohol and tobacco Family History: Reviewed and noncontributory for presenting illness Allergies: Reviewed, see documented allergy list. REVIEW OF SYSTEMS: CONSTITUTIONAL : No fever No chills No diaphoresis recent illness EENT: No vision changes congestion sore throat CARDIOVASCULAR: No chest pain No palpitations RESPIRATORY: shortness of breath cough No difficulty breathing GASTROINTESTINAL: No abdominal pain No nausea No vomiting No diarrhea GENITOURINARY: No dysuria No hematuria No difficulty urinating MUSCULOSKELETAL: No back pain No leg pain No arm pain SKIN: No rashes No lesions LYMPHATIC: No swollen, enlarged glands. NEUROLOGICAL: No lightheadedness No headache No weakness No paresthesias PSYCHIATRIC: No anxiety No depression PHYSICAL EXAMINATION: Vital signs reviewed, nursing noted reviewed. GENERAL: Well-appearing, well-nourished and in no acute distress. HEAD: Atraumatic, normocephalic. EYES: Eyes appear normal, extraocular movements intact, sclera anicteric, conjunctiva are normal. ENT: nares patent, oropharynx clear without exudates. Moist mucous membranes. NECK: Normal range of motion, supple without lymphadenopathy LUNGS: Dry frequent cough, no accessory muscle use, breath sounds clear to auscultation bilaterally and equal. No wheezes rales or rhonchi. HEART: Regular rate and rhythm without murmurs ABDOMEN: Soft, nontender, normoactive bowel sounds. No rebound, guarding, or rigidity. No masses appreciated. EXTREMITIES: Nontender, good range of motion, no pitting or edema. NEUROLOGICAL: No focal neurological deficits. Moves all extremities spontaneously Motor and sensory grossly intact on exam. PSYCH: Normal mood, normal affect. SKIN: Warm, Dry, normal turgor, no rashes or lesions noted on exposed skin - Related Data Allergies/Adverse Reactions: Sulfa (Sulfonamide Antibiotics) Allergy (Verified 06/22/17 17:05) Hives aspirin [Aspirin] Adverse Reaction (Intermediate, Verified 06/22/17 17:05) Abdominal pain Past Medical History - Social History Smoking Status: Unknown if Ever Smoked Frequency of alcohol use: None Drug Abuse: None Family History: Arthritis, CAD, CVA, DM, Hyperlipidemia, Hypertension, Thyroid Disfunction Patient has suicidal ideation: No Patient has homicidal ideation: No Pulmonary Medical History: Reports: Hx Asthma Renal/ Medical History: Reports: Hx Kidney Stones. Denies: Hx Peritoneal Dialysis GI Medical History: Reports: Hx Gastroesophageal Reflux Disease Musculoskeletal Medical History: Reports Hx Musculoskeletal Trauma Skin Medical History: Reports Hx Cellulitis, Reports Hx MRSA Psychiatric Medical History: Reports: Hx Attention Deficit Hyperactivity Disorder, Hx Depression Traumatic Medical History: Reports: Hx Fractures - toe Past Surgical History: Reports: Hx Kidney (Renal Surgery) - for kidney stones, Hx Myringotomy, Hx Nose Surgery, Hx Tonsillectomy - Immunizations Immunizations up to date: Yes Hx Diphtheria, Pertussis, Tetanus Vaccination: Yes - unknown Physical Exam - Vital signs Vitals: Temp Pulse Resp BP Pulse Ox 98.3 F 94 20 109/77 100 03/30/18 05:14 03/30/18 05:14 03/30/18 05:14 03/30/18 05:14 03/30/18 05:14 Course - Re-evaluation Re-evalutation: 03/30/18 07:14 Vitals reviewed. Nursing notes reviewed. Patient is nontoxic in appearance and hemodynamically stable. She is coughing but is not cooperating with HPI. It is difficult to get any history out of this patient. Patient was offered DuoNeb for the cough and shortness of breath. I did discuss that if she has not taken an antibiotic for a urinary tract infection that was diagnosed a month ago that her immune system may be down because of that causing her to have prolonged URI symptoms. Patient mother states that she will not take the antibiotics and she is not having symptoms. I offered to retest her urine today to further evaluate for urinary tract infection which aggravated the patient. At this time patient's mother pulled me outside of the room stating that I need to stop asking about urinary tract infections because it is making her mad. 03/30/18 07:35 Nursing staff approached me asking for Phenergan for the patient which she has requested. Patient did not mention anything about nausea during my initial evaluation. I went back in and checked on her. She states "well I told the people out front so you should know". She is having improvement of her cough after the breathing treatment. Patient states that she has been nauseated since yesterday with 2 episodes of emesis. She still denies any abdominal pain and has a benign abdominal exam. Phenergan was given for her nausea. I did explain that nausea and vomiting may be a side effect of an untreated urinary tract infection, patient still refusing urinalysis and hCG. 03/30/18 08:37 Patient's chest x-ray shows pneumonia. She will be started on Z-Darrian. She has no sirs criteria on her vital signs and is hemodynamically stable. She is not septic. She is not requiring blood work for this reason. Patient will be discharged home on antibiotics. She will follow closely with primary care. She is in agreement with this plan. She will return for new or worsening symptoms. Laboratory 03/30/18 03/30/18 07:38 07:38 Influenza A (Rapid) NEGATIVE Influenza B (Rapid) NEGATIVE Group A Strep Rapid NEGATIVE Chest X-Ray 03/30/18 06:26 IMPRESSION: Mild left lower lobar pneumonia/atelectasis. - Vital Signs Vital signs: Temp Pulse Resp BP Pulse Ox 98.3 F 94 20 109/77 100 03/30/18 05:14 03/30/18 05:14 03/30/18 05:14 03/30/18 05:14 03/30/18 05:14 Discharge - Discharge Clinical Impression: Community acquired pneumonia Qualifiers: Laterality: left Lung location: lower lobe of lung Qualified Code(s): J18.1 - Lobar pneumonia, unspecified organism Condition: Stable Disposition: HOME, SELF-CARE Instructions: Nausea or Vomiting, Nonspecific ([facility]), Pneumonia ([facility]) Additional Instructions: Please return to the emergency department if you have any worsening, or concern of your symptoms. Please return to the emergency department if you develop chest pain, difficulty breathing, severe abdominal pain, or ongoing vomiting. Please follow-up with your primary care physician in 2-3 days and any other recommended physicians. If prescribed, take all medications as directed. If you have any questions or concerns do not hesitate to return the emergency department for evaluation. Prescriptions: Benzonatate [Tessalon Perles 100 mg Capsule] 100 mg PO Q8HP PRN #40 capsule PRN Reason: Cough Albuterol Sulfate [Proair HFA Inhalation Aerosol 8.5 gm MDI] 2 puff IH Q4H PRN #1 mdi PRN Reason: Azithromycin [Zithromax 250 mg Tablet] 250 mg PO DAILY #4 tablet Forms: Return to Work Referrals: VASQUEZ DOSHI PA-C [Primary Care Provider] - Follow up in 3-5 days
[2018-03-30] MEDS ORDERED: PROMETHAZINE HCL 25 MG TABLET PO ONE (07:26)
--- NOTE | 2018-03-30 07:44 | RADIOLOGY REPORT (SQ) ---
EXAM DESCRIPTION: XR CHEST 1 VIEW COMPLETED DATE/TME: 03/30/2018 06:26 CLINICAL HISTORY: 27 years Female, cough COMPARISON: 10/29/17 NUMBER OF VIEWS/TECHNIQUE: 1/AP FINDINGS: Adequate lung volume, mild hazy opacity of the left lower hemithorax. normal cardiac silhouette, and intact bony thorax. Chronic catheter segment left paramedial upper thorax. IMPRESSION: Mild left lower lobar pneumonia/atelectasis.
[2018-03-30] MEDS ORDERED: AZITHROMYCIN 250 MG TABLET PO ONE (07:57)
[2018-03-30 08:14] LABS: A TYPE INFLUENZA AG NEGATIVE (NEGATIVE); B INFLUENZA AG NEGATIVE (NEGATIVE)
[2018-03-30 08:50] VITALS: BP 112/59
== END 2018-03-30 08:51 | disposition home or self-care (01) ==
LOC: ER 05:10
DX: J18.1 Lobar pneumonia, unspecified organism (principal); R11.0 Nausea; Z88.2 Allergy status to sulfonamides; Z88.6 Allergy status to analgesic agent; Z87.442 Personal history of urinary calculi; Z86.14 Personal history of Methicillin resistant Staphylococcus aureus infection
CPT/HCPCS: 94640; 99283; 96372; 87070; 87880; 87804; 71045; J1885; J7620

== ENCOUNTER 2018-06-12 19:37 | Emergency (ER) | payer SELFPAY ==
[2018-06-12] MEDS ORDERED: KETOROLAC TROMETHAMINE INJ/PF 30 MG/1 ML SDV IV ONE (23:03)
[2018-06-12] MEDS ORDERED: DIPHENHYDRAMINE HCL 50 MG/ML VIAL IV ONE (23:03)
[2018-06-12] MEDS ORDERED: METOCLOPRAMIDE HCL INJ/PF 10 MG/2 ML SDV IV ONE (23:04)
[2018-06-12] MEDS ORDERED: NORMAL SALINE 1000 ML 1,000 ML IV ONE (23:04)
--- NOTE | 2018-06-12 23:08 | ER Document Report ---
ED Medical Screen (RME) - General Chief Complaint: Headache Stated Complaint: HEADACHE Time Seen by Provider: 06/12/18 22:51 Primary Care Provider: VASQUEZ DOSHI PA-C [Primary Care Provider] - Follow up as needed Notes: 28-year-old otherwise healthy female presents to the emergency department for headache. She states she has had a headache for the last 2 weeks with minimal relief. She saw her PCP and a CT head was done and read as negative. She was prescribed Phenergan and Elavil and states the Phenergan provided some relief but the Elavil exacerbated her symptoms. She complains of photophobia, denies blurred or double vision denies neck stiffness, denies shortness of breath or chest pain. Denies urinary symptoms. I have greeted and performed a rapid initial assessment of this patient. A comprehensive ED assessment and evaluation of the patient, analysis of test results and completion of medical decision making process will be conducted by an additional ED providers. TRAVEL OUTSIDE OF THE [place] IN LAST 30 DAYS: No - Related Data Allergies/Adverse Reactions: Sulfa (Sulfonamide Antibiotics) Allergy (Verified 06/12/18 19:40) Hives aspirin [Aspirin] Adverse Reaction (Intermediate, Verified 06/12/18 19:40) Abdominal pain Past Medical History Pulmonary Medical History: Reports: Hx Asthma Renal/ Medical History: Reports: Hx Kidney Stones. Denies: Hx Peritoneal Dialysis GI Medical History: Reports: Hx Gastroesophageal Reflux Disease Musculoskeltal Medical History: Reports Hx Musculoskeletal Trauma Skin Medical History: Reports Hx Cellulitis, Reports Hx MRSA Psychiatric Medical History: Reports: Hx Attention Deficit Hyperactivity Disorder, Hx Depression Traumatic Medical History: Reports: Hx Fractures - toe Past Surgical History: Reports: Hx Kidney (Renal Surgery) - for kidney stones, Hx Myringotomy, Hx Nose Surgery, Hx Tonsillectomy - Immunizations Immunizations up to date: Yes Hx Diphtheria, Pertussis, Tetanus Vaccination: Yes - unknown Physical Exam - Vital signs Vitals: Temp Pulse Resp BP Pulse Ox 97.9 F 95 18 124/91 H 97 06/12/18 20:30 06/12/18 20:30 06/12/18 20:30 06/12/18 20:30 06/12/18 20:30 Course - Vital Signs Vital signs: Temp Pulse Resp BP Pulse Ox 97.9 F 95 18 124/91 H 97 06/12/18 20:30 06/12/18 20:30 06/12/18 20:30 06/12/18 20:30 06/12/18 20:30 Doctor's Discharge - Discharge Referrals: VASQUEZ DOSHI PA-C [Primary Care Provider] - Follow up as needed
--- NOTE | 2018-06-12 23:23 | ER Document Report ---
ED Headache - General Chief Complaint: Headache Stated Complaint: HEADACHE Time Seen by Provider: 06/12/18 23:23 Primary Care Provider: VASQUEZ DOSHI PA-C [Primary Care Provider] - Follow up as needed Mode of Arrival: Ambulatory Information source: Patient Notes: HISTORY OF PRESENT ILLNESS: Patient is a 28-year-old female with a past medical history of headaches who presents with migraine headache that began 1 week ago. Patient was seen by her primary physician and had an outpatient CT head obtained that she reports was normal. Location: Global Onset: Sudden Provocation: Bright lights, loud noises Quality: Throbbing Radiation: None Severity: Severe Timing: Constant History of headaches: Yes Recent head injury: None Vision changes: None Trouble walking: None Associated symptoms: No fevers or chills, no head injuries, no difficulty breathing or chest pain, no vision changes REVIEW OF SYSTEMS: CONSTITUTIONAL : Denies fever or chills, no sweats. Denies recent illness. EENT: Denies eye, ear, throat, or mouth pain or symptoms. Denies nasal or sinus congestion. CARDIOVASCULAR: Denies chest pain. RESPIRATORY: Denies cough, cold, or chest congestion. Denies shortness of breath, difficulty breathing, or wheezing. GASTROINTESTINAL: Denies abdominal pain. Denies nausea, vomiting, or diarrhea. Denies constipation. GENITOURINARY: Denies difficulty urinating, painful urination, burning, frequency, or blood in urine. FEMALE GENITOURINARY: Denies vaginal bleeding, abnormal or irregular periods. MUSCULOSKELETAL: Denies body aches. Denies neck or back pain or joint pain or swelling. SKIN: Denies rash or skin lesions. HEMATOLOGIC : Denies easy bruising or bleeding. LYMPHATIC: Denies swollen, enlarged glands. NEUROLOGICAL: Positive for headaches. Denies altered mental status or loss of consciousness. Denies weakness or paralysis or loss of use of either side. Denies problems with gait or speech. Denies sensory or motor loss. PSYCHIATRIC: Denies anxiety or stress or depression. All other systems reviewed and negative. PHYSICAL EXAMINATION: GENERAL: Well-appearing, well-nourished and in no acute distress. HEAD: Atraumatic, normocephalic. No scalp deformity, depression, or crepitance. EYES: Pupils are 4mm and equal/round/reactive to light, extraocular movements intact, sclera anicteric, conjunctiva are normal. ENT: Nares patent bilaterally, oropharynx clear without exudates or palatal petechia. Moist mucous membranes. No tonsil hypertrophy. NECK: Normal range of motion, supple without lymphadenopathy. LUNGS: Breath sounds present, equal, and clear to auscultation bilaterally. No wheezes, rales, or rhonchi. HEART: Regular rate and rhythm without murmurs, rubs, or gallops. 2+ peripheral pulses. Normal capillary refill. ABDOMEN: Soft, nontender, nondistended. Normoactive bowel sounds. No guarding, no rebound. No masses appreciated. BACK: Normal contour, no midline tenderness. Rectal exam deferred. PELVC: Deferred. EXTREMITIES: Normal range of motion, no pitting or edema. No cyanosis. NEUROLOGICAL: No focal neurological deficits. Cranial nerves III-XII grossly intact. Moves all extremities spontaneously and on command. PSYCH: Normal mood, normal affect. No suicidal thoughts/ideations. No homicidal thoughts/ideations. No hallucinations. SKIN: Warm, dry, normal turgor, no rashes or lesions noted. ASSESSMENT AND PLAN: This patient is a 28-year-old female who presents with migraine headache that was not improved by Benadryl/Reglan/Toradol that was given prior to our encounter. 1. Will give oral Imitrex along with promethazine and then reassess. 2. Will not consider reimaging given no focal neurological findings on exam. TRAVEL OUTSIDE OF THE [place] IN LAST 30 DAYS: No - Related Data Allergies/Adverse Reactions: Sulfa (Sulfonamide Antibiotics) Allergy (Verified 06/12/18 19:40) Hives aspirin [Aspirin] Adverse Reaction (Intermediate, Verified 06/12/18 19:40) Abdominal pain Past Medical History - General Information source: Patient - Social History Smoking Status: Current Every Day Smoker Chew tobacco use (# tins/day): No Frequency of alcohol use: None Drug Abuse: None Lives with: Family Family History: Arthritis, CAD, CVA, DM, Hyperlipidemia, Hypertension, Thyroid Disfunction Patient has suicidal ideation: No Patient has homicidal ideation: No - Past Medical History Cardiac Medical History: Reports: None Pulmonary Medical History: Reports: Hx Asthma EENT Medical History: Reports: None Neurological Medical History: Reports: Hx Migraine Endocrine Medical History: Reports: None Renal/ Medical History: Reports: Hx Kidney Stones. Denies: Hx Peritoneal Dialysis Malignancy Medical History: Reports: None GI Medical History: Reports: Hx Gastroesophageal Reflux Disease Musculoskeletal Medical History: Reports Hx Musculoskeletal Trauma Skin Medical History: Reports Hx Cellulitis, Reports Hx MRSA Psychiatric Medical History: Reports: Hx Attention Deficit Hyperactivity Disorder, Hx Depression Traumatic Medical History: Reports: Hx Fractures - toe Infectious Medical History: Reports: None Past Surgical History: Reports: Hx Kidney (Renal Surgery) - for kidney stones, Hx Myringotomy, Hx Nose Surgery, Hx Tonsillectomy - Immunizations Immunizations up to date: Yes Hx Diphtheria, Pertussis, Tetanus Vaccination: Yes - unknown Physical Exam - Vital signs Vitals: Temp Pulse Resp BP Pulse Ox 97.9 F 95 18 124/91 H 97 06/12/18 20:30 06/12/18 20:30 06/12/18 20:30 06/12/18 20:30 06/12/18 20:30 Course - Vital Signs Vital signs: Temp Pulse Resp BP Pulse Ox 97.9 F 95 18 124/91 H 97 06/12/18 20:30 06/12/18 20:30 06/12/18 20:30 06/12/18 20:30 06/12/18 20:30 - Laboratory Result Diagrams: 06/12/18 23:23 06/12/18 23:52 Laboratory results interpreted by me: 06/12/18 06/12/18 06/12/18 23:23 23:35 23:52 RDW 14.1 H Chloride 111 H AST 61 H ALT 105 H Total Protein 6.2 L Urine Ketones 20 H Urine Urobilinogen 2.0 H Discharge - Discharge Clinical Impression: Migraine headache Qualifiers: Migraine type: unspecified Status migrainosus presence: without status migrainosus Intractability: not intractable Qualified Code(s): G43.909 - Migra ine, unspecified, not intractable, without status migrainosus Condition: Good Disposition: HOME, SELF-CARE Instructions: Headache ([facility]) Additional Instructions: You have been evaluated in the Emergency Department for migraine headaches. While here, you had medications and it is now safe to be discharged home. Please follow-up with your primary physician as instructed in 1 week to be rechecked. Return to the Emergency Department if you experience worsening headaches, vision changes, high fevers, or any other concerning symptoms. Prescriptions: Promethazine HCl [Phenergan 25 mg Tablet] 25 mg PO Q6HP PRN #30 tablet PRN Reason: For Nausea/Vomiting Sumatriptan Succinate [Imitrex 50 mg Tablet] 50 mg PO PRN PRN #14 tab PRN Reason: For Headache Referrals: VASQUEZ DOSHI PA-C [Primary Care Provider] - Follow up as needed Print Language: Citizen Of [place]
[2018-06-12 23:34] LABS: ABSOLUTE BASOPHILS # (AUTO) 0.1 10^3/uL (0.0-0.2); ABSOLUTE EOSINOPHILS # (AUTO) 0.2 10^3/uL (0.0-0.6); ABSOLUTE LYMPHOCYTES (AUTO) 2.6 10^3/uL (0.5-4.7); ABSOLUTE MONOCYTES (AUTO) 0.7 10^3/uL (0.1-1.4); ABSOLUTE NEUT (AUTO) 6.6 10^3/uL (1.7-8.2); BASOPHILS % (AUTO) 0.9 % (0-2); EOSINOPHILS % (AUTO) 1.9 % (0-6); HEMATOCRIT 41.4 % (36.0-47.0); LYMPHOCYTES % (AUTO) 25.4 % (13-45); MEAN CORPUSCULAR HEMOGLOBIN 28.7 pg (27.0-33.4); MEAN CORPUSCULAR HGB CONC 33.9 g/dL (32.0-36.0); MEAN CORPUSCULAR VOLUME 85 fl (80-97); MONOCYTES % (AUTO) 6.7 % (3-13); PLATELET COUNT 262 10^3/uL (150-450); RED BLOOD COUNT 4.88 10^6/uL (3.72-5.28); RED CELL DISTRIBUTION WIDTH 14.1 % (11.5-14.0); SEGMENTED NEUTROPHILS % (AUTO) 65.1 % (42-78); TOTAL CELLS COUNTED % (AUTO) 100 %; WHITE BLOOD COUNT 10.1 10^3/uL (4.0-10.5)
[2018-06-12 23:59] LABS: APPEARANCE,URINE SLIGHTLY-CLOUDY; BILIRUBIN,URINE NEGATIVE (NEGATIVE); COLOR,URINE YELLOW; GLUCOSE, URINE NEGATIVE (NEGATIVE); KETONES,URINE 20 mg/dL (NEGATIVE); LEUKOCYTE ESTERASE,URINE NEGATIVE (NEGATIVE); NITRITE,URINE NEGATIVE (NEGATIVE); PROTEIN,URINE NEGATIVE (NEGATIVE)
[2018-06-13] MEDS ORDERED: PROMETHAZINE HCL INJ 25 MG/1 ML VIAL IV ONE (01:12)
[2018-06-13] MEDS ORDERED: SUMATRIPTAN SUCCINATE 25 MG TABLET PO ONE (01:14)
[2018-06-13 01:30] LABS: ALANINE AMINOTRANSFERASE 105 U/L (9-52); ALBUMIN 3.5 g/dL (3.5-5.0); ALKALINE PHOSPHATASE 96 U/L (38-126); ANION GAP 6 (5-19); ASPARTATE AMINO TRANSFERASE 61 U/L (14-36); BILIRUBIN,DIRECT 0.3 mg/dL (0.0-0.4); BILIRUBIN,TOTAL 0.9 mg/dL (0.2-1.3); BLOOD UREA NITROGEN 11 mg/dL (7-20); CALCIUM 9.2 mg/dL (8.4-10.2); CARBON DIOXIDE 22 mmol/L (22-30); CHLORIDE 111 mmol/L (98-107); GLUCOSE 83 mg/dL (75-110); SODIUM 139.2 mmol/L (137-145); TOTAL PROTEIN 6.2 g/dL (6.3-8.2)
[2018-06-13] MEDS ORDERED: SUMATRIPTAN SUCCINATE 100 MG TABLET ONE (01:30)
[2018-06-13 02:30] VITALS: BP 102/58
== END 2018-06-13 02:31 | disposition home or self-care (01) ==
LOC: ER 19:37
DX: G43.909 Migraine, unspecified, not intractable, without status migrainosus (principal); F17.200 Nicotine dependence, unspecified, uncomplicated; Z88.2 Allergy status to sulfonamides; Z88.6 Allergy status to analgesic agent; Z86.14 Personal history of Methicillin resistant Staphylococcus aureus infection
CPT/HCPCS: 99283; 96361; 96374; 96375; 36415; 85025; 81025; 80053; 81001; J1200; J1885; J2765; J2550; J7030; J3490

== ENCOUNTER 2018-07-16 08:53 | Emergency (ER) | payer OTHER ==
--- NOTE | 2018-07-16 09:53 | RADIOLOGY REPORT (SQ) ---
EXAM DESCRIPTION: WRIST RIGHT 3 VIEWS COMPLETED DATE/TIME: 07/16/2018 9:43 am REASON FOR STUDY: hall3 injury +tenderness COMPARISON: None. NUMBER OF VIEWS: Three views. TECHNIQUE: AP, lateral, and oblique radiographic images acquired of the right wrist. LIMITATIONS: None. FINDINGS: MINERALIZATION: Normal. BONES: No acute fracture or dislocation. No worrisome bone lesions. Normal alignment. SOFT TISSUES: No soft tissue swelling. No foreign body. OTHER: No other significant finding. IMPRESSION: NEGATIVE STUDY OF THE RIGHT WRIST. NO RADIOGRAPHIC EVIDENCE OF ACUTE INJURY. TECHNICAL DOCUMENTATION: JOB ID: [id number] [employer]- All Rights Reserved Reading location - IP/workstation name: [email or web address]
[2018-07-16] MEDS ORDERED: IBUPROFEN 600 MG TABLET PO ONE (10:27)
[2018-07-16] MEDS ORDERED: HYDROCODONE/ACETAMINOPHEN 5-325 MG TABLET PO ONE (10:27)
--- NOTE | 2018-07-16 10:29 | ER Document Report ---
ED General - General Chief Complaint: Wrist Pain Stated Complaint: WRIST PAIN Time Seen by Provider: 07/16/18 09:41 Primary Care Provider: VASQUEZ DOSHI PA-C [Primary Care Provider] - Follow up as needed Mode of Arrival: Ambulatory Information source: Patient Notes: 28-year-old female presents with right wrist pain. She states that just prior to arrival she was taking out the garbage when it started to fall over causing her to misstep, trip and land striking her wrist on the garbage can. Patient denies fall to the ground, head injury, loss of consciousness, prior similar symptoms. TRAVEL OUTSIDE OF THE [place] IN LAST 30 DAYS: No - HPI Onset: Just prior to arrival Onset/Duration: Sudden Quality of pain: Throbbing Severity: Moderate Pain Level: 2 Associated symptoms: denies: Chest pain, Leg swelling, Nausea, Vomiting, Shortness of breath Exacerbated by: Movement Relieved by: Remaining still Similar symptoms previously: No Recently seen / treated by doctor: No - Related Data Allergies/Adverse Reactions: Sulfa (Sulfonamide Antibiotics) Allergy (Verified 07/16/18 08:54) Hives aspirin [Aspirin] Adverse Reaction (Intermediate, Verified 07/16/18 08:54) Abdominal pain Past Medical History - General Information source: Patient, [facility] Records - Social History Smoking Status: Current Some Day Smoker Cigarette use (# per day): Yes - 3 Chew tobacco use (# tins/day): No Smoking Education Provided: Yes - Smoking cessation counseling was provided for 4 minutes at the bedside Frequency of alcohol use: Rare Drug Abuse: None Lives with: Family Family History: Arthritis, CAD, CVA, DM, Hyperlipidemia, Hypertension, Thyroid Disfunction Patient has suicidal ideation: No Patient has homicidal ideation: No Pulmonary Medical History: Reports: Hx Asthma Neurological Medical History: Reports: Hx Migraine Renal/ Medical History: Reports: Hx Kidney Stones. Denies: Hx Peritoneal Dialysis GI Medical History: Reports: Hx Gastroesophageal Reflux Disease Musculoskeletal Medical History: Reports Hx Musculoskeletal Trauma Skin Medical History: Reports Hx Cellulitis, Reports Hx MRSA Psychiatric Medical History: Reports: Hx Attention Deficit Hyperactivity Disorder, Hx Depression Traumatic Medical History: Reports: Hx Fractures - toe Past Surgical History: Reports: Hx Kidney (Renal Surgery) - for kidney stones, Hx Myringotomy, Hx Nose Surgery, Hx Tonsillectomy - Immunizations Immunizations up to date: Yes Hx Diphtheria, Pertussis, Tetanus Vaccination: Yes - unknown Review of Systems - Review of Systems Notes: REVIEW OF SYSTEMS: CONSTITUTIONAL : Denies fever, chills, or sweats. Denies recent illness. Denies weight loss, recent hospitalizations. EENT: Denies visual changes, eye pain. Denies sore throat, oral lesions, difficulty swallowing. CARDIOVASCULAR: Denies chest pain. Denies palpitations. Denies lower extremity edema. RESPIRATORY: Denies cough. Denies shortness of breath, wheezing. GASTROINTESTINAL: Denies abdominal pain or distention. Denies nausea, vomiting, or diarrhea. Denies blood in vomitus, stools, or per rectum. Denies black, tarry stools. Denies constipation. GENITOURINARY: Denies difficulty urinating, painful urination, frequency, blood in urine, or vaginal discharge. MUSCULOSKELETAL: Denies back or neck pain or stiffness. + joint pain or swelling. SKIN: Denies rash, lesions or sores. HEMATOLOGIC : Denies easy bruising or bleeding. LYMPHATIC: Denies swollen glands. NEUROLOGICAL: Denies confusion or altered mental status. Denies loss of consciousness. Denies dizziness or lightheadedness. Denies headache. Denies weakness or paralysis. Denies problems difficulty with ambulation, slurred speech. Denies sensory loss, numbness, or tingling. Denies seizures. PSYCHIATRIC: Denies anxiety or stress. Denies depression, suicidal ideation, or homicidal ideation. Denies visual or auditory hallucinations. Physical Exam - Vital signs Vitals: Temp Pulse Resp BP Pulse Ox 98.0 F 105 H 16 125/68 97 07/16/18 08:58 07/16/18 08:58 07/16/18 08:58 07/16/18 08:58 07/16/18 08:58 - Notes Notes: PHYSICAL EXAMINATION: GENERAL: Well-appearing, well-nourished and in no acute distress. HEAD: Atraumatic, normocephalic. EYES: Pupils equal round and reactive to light, extraocular movements intact, conjunctiva are normal. ENT: Nares patent, oropharynx clear without exudates. Moist mucous membranes. NECK: Normal range of motion, supple without lymphadenopathy LUNGS: Breath sounds clear to auscultation bilaterally and equal. No wheezes rales or rhonchi. HEART: Regular rate and rhythm without murmurs ABDOMEN: Soft, nontender, nondistended abdomen. No guarding, no rebound. No masses appreciated. Female : deferred Musculoskeletal: Normal range of motion, no pitting or edema. No cyanosis. Right wrist diffusely tender, no obvious deformity, radial and ulnar pulse intact. Cap refill less than 2 seconds. Sensation intact. NEUROLOGICAL: Cranial nerves grossly intact. Normal speech, normal gait. Normal sensory, motor exams PSYCH: Normal mood, normal affect. SKIN: Warm, Dry, normal turgor, no rashes or lesions noted. Course - Re-evaluation Re-evalutation: 07/16/18 17:36 Wrist X-Ray 07/16/18 00:00 IMPRESSION: NEGATIVE STUDY OF THE RIGHT WRIST. NO RADIOGRAPHIC EVIDENCE OF ACUTE INJURY. Temp Pulse Resp BP Pulse Ox 98.0 F 50 L 16 118/60 100 07/16/18 08:58 07/16/18 10:49 07/16/18 10:49 07/16/18 10:49 07/16/18 10:49 28-year-old female presents with right wrist pain after falling on top of her garbage can. X-rays were obtained and negative for acute fracture. Vital signs reviewed and within normal limits. Patient does not appear toxic or dehydrated. She is in no acute distress. Patient did receive 1 dose of [place], Motrin and was placed in a cock-up wrist splint. Advised to ice, elevate. Patient was evaluated and treated as appropriate for the patient's presenting symptoms and complaint, with consideration of any critical or life threatening conditions that may be associated with their obtained history and exam as noted above. All results were discussed with patient and her mother who is at the bedside. Patient provided the opportunity to ask questions, and express concerns. Patient was educated on treatments based on their presumed diagnosis as noted above. At this time we will discharge the patient with return precautions and follow-up recommendations. Verbal discharge instructions given a the bedside. Medication warnings reviewed. Patient is in agreement with this plan and has verbalized understanding of return precautions. After careful consideration I feel that that patient can be safely discharged from the emergency department, they were advised to followup with a primary care physician in 2-3 days. Dictation on this chart was performed using voice recognition software and may result in unintended grammatical, spelling, syntax or errors. - Vital Signs Vital signs: Temp Pulse Resp BP Pulse Ox 98.0 F 50 L 16 118/60 100 07/16/18 08:58 07/16/18 10:49 07/16/18 10:49 07/16/18 10:49 07/16/18 10:49 - Diagnostic Test Radiology reviewed: Image reviewed, Reports reviewed Discharge - Discharge Clinical Impression: Right wrist sprain Qualifiers: Encounter type: initial encounter Qualified Code(s): S63.501A - Unspecified sprain of right wrist, initial encounter Condition: Good Disposition: HOME, SELF-CARE Instructions: Ice & Elevation ([facility]), Wrist Sprain ([facility]) Additional Instructions: Follow up with your [id number] hours for further care or return to the ED IMMEDIATELY if symptoms worsen or you have any concerns. If you cannot afford to follow up with your primary care physician a list of low cost clinics have been provided at the end of your discharge papers as well. Most prescribed medications have multiple side effects. The safest thing to do is when filling your prescription speak to your pharmacist regarding possible interactions with your normal home medications and over the counter medications such as Ibuprofen, Tylenol, Benadryl. If you experience any symptoms that cause you discomfort or concern you should discontinue the medication immediately and return to the emergency room or call your primary care physician. Prescriptions: Ibuprofen [Motrin 600 Mg Tablet] 600 mg PO TID #15 tablet Referrals: VASQUEZ DOSHI PA-C [Primary Care Provider] - Follow up as needed
[2018-07-16 10:49] VITALS: BP 118/60
== END 2018-07-16 10:50 | disposition home or self-care (01) ==
LOC: ER 08:53
DX: S63.501A Unspecified sprain of right wrist, initial encounter (principal); M25.531 Pain in right wrist; W01.0XXA Fall on same level from slipping, tripping and stumbling without subsequent striking against object, initial encounter; F17.210 Nicotine dependence, cigarettes, uncomplicated; J45.909 Unspecified asthma, uncomplicated
CPT/HCPCS: 99406; 99283; 73110; L3908

== ENCOUNTER 2019-01-01 11:07 | Emergency (ER) | payer OTHER ==
--- NOTE | 2019-01-01 11:44 | ER Document Report ---
ED Medical Screen (RME) - General Chief Complaint: Headache Stated Complaint: HEADACHE,POSSIBLE KIDNEY STONE Time Seen by Provider: 01/01/19 11:40 Primary Care Provider: VASQUEZ DOSHI PA-C [Primary Care Provider] - Follow up as needed Mode of Arrival: Ambulatory Information source: Patient Notes: 28-year-old female presented to ED for complaint of left flank pain, migraines, nausea and vomiting since Tuesday. She states she has passed kidney stones this weekend she does have a history of kidney stones. Patient is alert and oriented respirations regular and unlabored. She states she is allergic to sulfur and aspirin. Last menstrual period was on 30 December. I have greeted and performed a rapid initial assessment of this patient. A comprehensive ED assessment and evaluation of the patient, analysis of test results and completion of medical decision making process will be conducted by an additional ED providers. TRAVEL OUTSIDE OF THE [place] IN LAST 30 DAYS: No - Related Data Allergies/Adverse Reactions: Sulfa (Sulfonamide Antibiotics) Allergy (Verified 07/16/18 08:54) Hives aspirin [Aspirin] Adverse Reaction (Intermediate, Verified 07/16/18 08:54) Abdominal pain Home Medications: omprazole, "migrane medications" Past Medical History Pulmonary Medical History: Reports: Hx Asthma Neurological Medical History: Reports: Hx Migraine Renal/ Medical History: Reports: Hx Kidney Stones. Denies: Hx Peritoneal Dialysis GI Medical History: Reports: Hx Gastroesophageal Reflux Disease Musculoskeltal Medical History: Reports Hx Musculoskeletal Trauma Skin Medical History: Reports Hx Cellulitis, Reports Hx MRSA Psychiatric Medical History: Reports: Hx Attention Deficit Hyperactivity Disorder, Hx Depression Traumatic Medical History: Reports: Hx Fractures - toe Past Surgical History: Reports: Hx Kidney (Renal Surgery) - for kidney stones, Hx Myringotomy, Hx Nose Surgery, Hx Tonsillectomy - Immunizations Immunizations up to date: Yes Hx Diphtheria, Pertussis, Tetanus Vaccination: Yes - unknown Physical Exam - Vital signs Vitals: Temp Pulse Resp BP Pulse Ox 98.3 F 76 16 138/94 H 97 01/01/19 11:11 01/01/19 11:11 01/01/19 11:11 01/01/19 11:11 01/01/19 11:11 Course - Vital Signs Vital signs: Temp Pulse Resp BP Pulse Ox 98.3 F 76 16 138/94 H 97 01/01/19 11:11 01/01/19 11:11 01/01/19 11:11 01/01/19 11:11 01/01/19 11:11 Doctor's Discharge - Discharge Referrals: VASQUEZ DOSHI PA-C [Primary Care Provider] - Follow up as needed
[2019-01-01] MEDS ORDERED: DIPHENHYDRAMINE HCL 50 MG/ML VIAL IV ONE (11:45)
[2019-01-01] MEDS ORDERED: PROCHLORPERAZINE EDISYLATE INJ 10 MG/2 ML VIAL IV ONE (11:45)
[2019-01-01] MEDS ORDERED: KETOROLAC TROMETHAMINE INJ/PF 30 MG/1 ML SDV IV ONE (11:45)
[2019-01-01] MEDS ORDERED: NORMAL SALINE 1000 ML 1,000 ML IV ONE (11:45)
[2019-01-01 12:42] LABS: ABSOLUTE BASOPHILS # (AUTO) 0.1 10^3/uL (0.0-0.2); ABSOLUTE EOSINOPHILS # (AUTO) 0.2 10^3/uL (0.0-0.6); ABSOLUTE LYMPHOCYTES (AUTO) 2.7 10^3/uL (0.5-4.7); ABSOLUTE MONOCYTES (AUTO) 0.6 10^3/uL (0.1-1.4); ABSOLUTE NEUT (AUTO) 6.9 10^3/uL (1.7-8.2); BASOPHILS % (AUTO) 1.2 % (0-2); EOSINOPHILS % (AUTO) 2.2 % (0-6); HEMATOCRIT 41.9 % (36.0-47.0); HEMOGLOBIN 14.4 g/dL (12.0-15.5); LYMPHOCYTES % (AUTO) 25.7 % (13-45); MEAN CORPUSCULAR HEMOGLOBIN 29.1 pg (27.0-33.4); MEAN CORPUSCULAR HGB CONC 34.4 g/dL (32.0-36.0); MEAN CORPUSCULAR VOLUME 85 fl (80-97); MONOCYTES % (AUTO) 6.1 % (3-13); PLATELET COUNT 241 10^3/uL (150-450); RED BLOOD COUNT 4.94 10^6/uL (3.72-5.28); RED CELL DISTRIBUTION WIDTH 13.3 % (11.5-14.0); SEGMENTED NEUTROPHILS % (AUTO) 64.8 % (42-78); TOTAL CELLS COUNTED % (AUTO) 100 %; WHITE BLOOD COUNT 10.6 10^3/uL (4.0-10.5)
[2019-01-01 12:48] LABS: APPEARANCE,URINE SLIGHTLY-CLOUDY; BILIRUBIN,URINE NEGATIVE (NEGATIVE); COLOR,URINE YELLOW; GLUCOSE, URINE NEGATIVE (NEGATIVE); KETONES,URINE NEGATIVE (NEGATIVE); PROTEIN,URINE NEGATIVE (NEGATIVE); URINE SPECIFIC GRAVITY 1.015; UROBILINOGEN,URINE NEGATIVE mg/dL (<2.0)
[2019-01-01 12:59] LABS: ALBUMIN 3.6 g/dL (3.5-5.0); ALKALINE PHOSPHATASE 76 U/L (38-126); ANION GAP 6 (5-19); ASPARTATE AMINO TRANSFERASE 21 U/L (14-36); BILIRUBIN,DIRECT 0.1 mg/dL (0.0-0.4); BILIRUBIN,TOTAL 0.4 mg/dL (0.2-1.3); BLOOD UREA NITROGEN 12 mg/dL (7-20); CALCIUM 8.7 mg/dL (8.4-10.2); CARBON DIOXIDE 26 mmol/L (22-30); CHLORIDE 108 mmol/L (98-107); GLUCOSE 82 mg/dL (75-110); POTASSIUM 3.9 mmol/L (3.6-5.0); TOTAL PROTEIN 6.2 g/dL (6.3-8.2)
--- NOTE | 2019-01-01 13:51 | RADIOLOGY REPORT (SQ) ---
EXAM DESCRIPTION: CT ABD/PELVIS NO ORAL OR IV COMPLETED DATE/TIME: 01/01/2019 12:56 pm REASON FOR STUDY: left flank pain with hematuria COMPARISON: 08/12/2016 TECHNIQUE: CT scan of the abdomen and pelvis performed without intravenous or oral contrast. Images reviewed with lung, soft tissue, and bone windows. Reconstructed coronal and sagittal MPR images revi ewed. All images stored on PACS. All CT scanners at this facility use dose modulation, iterative reconstruction, and/or weight based d osing when appropriate to reduce radiation dose to as low as reasonably achievable (ALARA). [facility]: Dose Right [facility]: CareDose [facility]: Dose Right [facility]: Teradose 4D [facility]: [employer] RADIATION DOSE: CT Rad equipment meets quality standard of care and radiation dose reduction techniq ues were employed. CTDIvol: 17.4 mGy. DLP: 965 mGy-cm.mGy. LIMITATIONS: None. FINDINGS: LOWER CHEST: No significant findings. No nodules or infiltrates. NON-CONTRASTED LIVER, SPLEEN, ADRENALS: Evaluation limited by lack of IV contrast. No identified sign ificant masses. PANCREAS: No masses. No peripancreatic inflammatory changes. GALLBLADDER: No identified stones by CT criteria. No inflammatory changes to suggest cholecystitis. RIGHT KIDNEY AND URETER: No suspicious masses. Assessment limited by lack of IV contrast. There are nonobstructing intrarenal calculi. No hydronephrosis or hydroureter. LEFT KIDNEY AND URETER: No suspicious masses. Assessment limited by lack of IV contrast. There are nonobstructing intrarenal calculi. No hydronephrosis or hydroureter. AORTA AND RETROPERITONEUM: No aneurysm. No retroperitoneal masses or adenopathy. BOWEL AND PERITONEAL CAVITY: No obvious masses or inflammatory changes. No free fluid. APPENDIX: Normal. PELVIS, BLADDER, AND ABDOMINAL WALL:No abnormal masses. No free fluid. Bladder normal. BONES: No significant findings. OTHER: No other significant finding. IMPRESSION: There are nonobstructing intrarenal calculi bilaterally. There is no ureteral stone or obstruction. COMMENT: Quality ID # [id number]: Final reports with documentation of one or more dose reduction techniques (e.g., Automated exposure control, adjustment of the mA and/or kV according to patient size, use of iterative reconstruction technique) TECHNICAL DOCUMENTATION: JOB ID: [id number] [employer]- All Rights Reserved Reading location - IP/workstation name: [email or web address]
--- NOTE | 2019-01-01 14:37 | ER Document Report ---
HPI - HPI Time Seen by Provider: 01/01/19 11:40 Pain Level: 3 Notes: Patient is a 28-year-old female with a history of migraines and kidney stones who presents complaining of migraine over the past several days as well as passing kidney stones this weekend. Patient states that she does have some lingering right flank pain, but has since eased off. She has been able to eat and drink, does have decreased p.o. intake due to some nausea and vomiting that was associated during the kidney stone issue. She is urinating normally currently and is having normal bowel movements. No other vaginal discharge, odor, or bleeding. Patient did receive medications at triage and is feeling better overall. This is not the worst headache of her life and did not start as a thunderclap. This mimicked previous migraine headaches. Denies any fever, head injury, neck pain, changes in vision/speech/mentation/hearing, URI, sore throat, chest pain, palpitations, syncope, cough, shortness of breath, wheeze, dyspnea, abdominal pain, urinary retention, loss of control of bowel or bladder, numbness/tingling, saddle anesthesia, muscle paralysis/weakness, or rash. - ROS Systems Reviewed and Negative: Yes All other systems reviewed and negative - CONSTITUTIONAL Constitutional: DENIES: Fever, Chills - GASTROINTESTINAL Gastrointestinal: REPORTS: Abdominal Pain - REPRODUCTIVE LMP: 12/31/19 Reproductive: DENIES: : Past Medical History - General Information source: Patient - Social History Smoking Status: Current Every Day Smoker Family History: Arthritis, CAD, CVA, DM, Hyperlipidemia, Hypertension, Thyroid Disfunction Patient has suicidal ideation: No Patient has homicidal ideation: No Pulmonary Medical History: Reports: Hx Asthma Neurological Medical History: Reports: Hx Migraine Renal/ Medical History: Reports: Hx Kidney Stones. Denies: Hx Peritoneal Dialysis GI Medical History: Reports: Hx Gastroesophageal Reflux Disease Musculoskeletal Medical History: Reports Hx Musculoskeletal Trauma Skin Medical History: Reports Hx Cellulitis, Reports Hx MRSA Psychiatric Medical History: Reports: Hx Attention Deficit Hyperactivity Disorder, Hx Depression Traumatic Medical History: Reports: Hx Fractures - toe Past Surgical History: Reports: Hx Kidney (Renal Surgery) - for kidney stones, Hx Myringotomy, Hx Nose Surgery, Hx Tonsillectomy - Immunizations Immunizations up to date: Yes Hx Diphtheria, Pertussis, Tetanus Vaccination: Yes - unknown Vertical Provider Document - CONSTITUTIONAL Agree With Documented VS: Yes Notes: PHYSICAL EXAMINATION: GENERAL: Well-appearing, well-nourished and in no acute distress. A&Ox4. Answers questions appropriately. HEAD: Atraumatic, normocephalic. Non-tender. EYES: Pupils equal round and reactive to light, extraocular movements intact, sclera anicteric, conjunctiva are normal. No nystagmus. ENT: EAC clear b/l. TM's intact b/l without erythema, fluid, or perforation. Nares patent and without discharge. oropharynx clear without exudates. No tonsilar hypertrophy or erythema. Moist mucous membranes. No sinus tenderness. NECK: Normal range of motion, supple without lymphadenopathy. No rigidity/meningismus. No midline tenderness. LUNGS: Breath sounds clear to auscultation bilaterally and equal. No wheezes rales or rhonchi. HEART: Regular rate and rhythm without murmurs, rubs, gallops. ABDOMEN: Soft, nontender, nondistended abdomen. No guarding, no rebound. Normal bowel sounds present. + mild rt CVA tenderness. Musculoskeletal: Ext b/l: FROM to passive/active. Strength 5+/5. No deficits noted. No bony tenderness of extremities. Extremities: No cyanosis, clubbing, or edema b/l. Peripheral pulses 2+. Capillary refill less than 2 seconds. NEUROLOGICAL: NIH 0. GCS 15. Cranial nerves grossly intact. Normal speech, normal gait. Normal sensory, motor exams. Reflexes 2+ b/l. ANA LAURA's negative. Pronator drift negative. Heel/gandhi, finger/nose wnl. PSYCH: Normal mood, normal affect. SKIN: Warm, Dry, normal turgor, no rashes or lesions noted. - INFECTION CONTROL TRAVEL OUTSIDE OF THE [place] IN LAST 30 DAYS: No Course - Re-evaluation Re-evalutation: 01/01/19 14:42 Patient is an afebrile, well-hydrated, 28-year-old female who presents to the ED with a headache, suspect migraine and resolving rt flank pain, suspect from recently passed stones. Vitals are acceptable without any significant tachycardia, tachypnea, or hypoxia. PE is otherwise unremarkable for any focal neurological deficits. NIH 0, GCS 15, cranial nerves grossly intact. Patient has had headaches like this in the past recently. Labs and imaging u nremarkable. No other labs or imaging warranted at this time based on H&P. Patient was given Toradol, Compazine, and benadryl which has significantly improved her headache. Patient states that she is feeling much better and would like to go home. She is nontoxic-appearing and is tolerating p.o. without any difficulties. Low suspicion for any acute glaucoma, temporal arteritis, meningitis, intracranial hemorrhage, ischemic stroke, or fracture at this time. Patient is aware that this condition can change from initial presentation and that she needs to monitor symptoms closely for any acute changes. Recheck with your PCM/neurologist/Urologist in 3-5 days. Return to the ED with any worse tiffanie/concerning symptoms otherwise as reviewed in discharge. Patient is in agreement. - Vital Signs Vital signs: Temp Pulse Resp BP Pulse Ox 98.3 F 76 16 138/94 H 97 01/01/19 11:11 01/01/19 11:11 01/01/19 11:11 01/01/19 11:11 01/01/19 11:11 - Laboratory Result Diagrams: 01/01/19 12:33 01/01/19 12:33 Laboratory results interpreted by me: 01/01/19 01/01/19 12:33 12:33 WBC 10.6 H Chloride 108 H Total Protein 6.2 L Discharge - Discharge Clinical Impression: Right flank pain Headache Qualifiers: Headache type: unspecified Headache chronicity pattern: acute headache Intractability: not intractable Qualified Code(s): R51 - Headache Condition: Stable Disposition: HOME, SELF-CARE Instructions: Headache ([facility]) Additional Instructions: Rest, Ice/cool compress Tylenol/ibuprofen as needed Light stretches daily Strength exercises as able Moist heat and massage may help F/u with your PCP in 2-3 days for a recheck Consider consult(s) with Neurology/Urology for ongoing/worsening symptoms Return to the ED with any worsening symptoms and/or development of fever, headache, changes in behavior/mentation/vision/speech, chest pain, palpitations, syncope, shortness of breath, trouble breathing, abdominal pain, n/v/d, blood in stool/urine, loss of control of bowel/bladder, urinary retention, muscle weakness/paralysis, saddle anesthesia, numbness/tingling, or other worsening symptoms that are concerning to you. Prescriptions: Butalb/Acetaminophen/Caffeine [Fioricet (50-325-40 mg) Tablet] 1 tab PO Q4HP PRN #12 tab PRN Reason: Ondansetron [Zofran Odt 4 mg Tablet] 1 - 2 tab PO Q4H PRN #15 tab.rapdis PRN Reason: For Nausea/Vomiting Forms: Elevated Blood Pressure, Smoking Cessation Education Referrals: VASQUEZ DOSHI PA-C [Primary Care Provider] - Follow up in 3-5 days
[2019-01-01 14:55] VITALS: BP 122/75
== END 2019-01-01 15:01 | disposition home or self-care (01) ==
LOC: ER 11:07
DX: R51 Headache (principal); R10.9 Unspecified abdominal pain; F17.200 Nicotine dependence, unspecified, uncomplicated; J45.909 Unspecified asthma, uncomplicated; Z87.19 Personal history of other diseases of the digestive system; Z86.69 Personal history of other diseases of the nervous system and sense organs; Z87.442 Personal history of urinary calculi
CPT/HCPCS: 36415; 84702; 83690; 85025; 81025; 80053; 81001; 74176; J1200; J1885; J0780; J7030; 96361; 96374; 96375; 99284

== ENCOUNTER 2019-07-28 17:47 | Emergency (ER) | payer OTHER ==
[2019-07-28 17:54] VITALS: BP 136/80
[2019-07-28] MEDS ORDERED: HYDROCODONE/ACETAMINOPHEN 5-325 MG TABLET PO ONE (18:02)
[2019-07-28] MEDS ORDERED: PROMETHAZINE HCL 25 MG TABLET PO ONE (18:02)
[2019-07-28] MEDS ORDERED: NORMAL SALINE 1000 ML 1,000 ML IV ONE (18:03)
--- NOTE | 2019-07-28 18:05 | ER Document Report ---
ED Medical Screen (RME) - General Chief Complaint: Abdominal Pain Stated Complaint: RIGHT FLANK PAIN Time Seen by Provider: 07/28/19 18:02 Primary Care Provider: ALEX CALDERON DO [Primary Care Provider] - Follow up as needed Mode of Arrival: Wheelchair Information source: Patient Notes: 29-year-old female presented to ED for right flank pain since a.m. She does anthony ve a history of kidney stones. She denies any blood in her urine but she states she is having nausea and vomiting. She is alert oriented respirations regular nonlabored speaking in full sentences. States she did recently quit smoking she does not drink or do any drugs. She has had her gallbladder removed tonsils adenoids removed head cyst removed and has had stones in the past. I have greeted and performed a rapid initial assessment of this patient. A comprehensive ED assessment and evaluation of the patient, analysis of test results and completion of medical decision making process will be conducted by an additional ED providers. TRAVEL OUTSIDE OF THE [place] IN LAST 30 DAYS: No - Related Data Allergies/Adverse Reactions: Sulfa (Sulfonamide Antibiotics) Allergy (Verified 07/28/19 17:57) Hives aspirin [Aspirin] Adverse Reaction (Intermediate, Verified 07/28/19 17:57) Abdominal pain Past Medical History - Social History Chew tobacco use (# tins/day): No Frequency of alcohol use: None Drug Abuse: None Pulmonary Medical History: Reports: Hx Asthma Neurological Medical History: Reports: Hx Migraine Renal/ Medical History: Reports: Hx Kidney Stones. Denies: Hx Peritoneal Dialysis GI Medical History: Reports: Hx Gastroesophageal Reflux Disease Musculoskeltal Medical History: Reports Hx Musculoskeletal Trauma Skin Medical History: Reports Hx Cellulitis, Reports Hx MRSA Psychiatric Medical History: Reports: Hx Attention Deficit Hyperactivity Disorder, Hx Depression Traumatic Medical History: Reports: Hx Fractures - toe Past Surgical History: Reports: Hx Kidney (Renal Surgery) - for kidney stones, Hx Myringotomy, Hx Nose Surgery, Hx Tonsillectomy - Immunizations Immunizations up to date: Yes Hx Diphtheria, Pertussis, Tetanus Vaccination: Yes - unknown Physical Exam - Vital signs Vitals: Temp Pulse Resp BP Pulse Ox 97.8 F 93 20 136/80 H 96 07/28/19 17:52 07/28/19 17:52 07/28/19 17:52 07/28/19 17:52 07/28/19 17:52 Course - Vital Signs Vital signs: Temp Pulse Resp BP Pulse Ox 97.8 F 93 20 136/80 H 96 07/28/19 17:57 07/28/19 17:52 07/28/19 17:52 07/28/19 17:52 07/28/19 17:52 Doctor's Discharge - Discharge Referrals: ALEX CALDERON, [Primary Care Provider] - Follow up as needed
[2019-07-28 19:34] LABS: ABSOLUTE BASOPHILS # (AUTO) 0.1 10^3/uL (0.0-0.2); ABSOLUTE EOSINOPHILS # (AUTO) 0.1 10^3/uL (0.0-0.6); ABSOLUTE LYMPHOCYTES (AUTO) 3.1 10^3/uL (0.5-4.7); ABSOLUTE MONOCYTES (AUTO) 0.5 10^3/uL (0.1-1.4); ABSOLUTE NEUT (AUTO) 7.1 10^3/uL (1.7-8.2); BASOPHILS % (AUTO) 0.7 % (0-2); EOSINOPHILS % (AUTO) 1.1 % (0-6); HEMATOCRIT 44.5 % (36.0-47.0); HEMOGLOBIN 15.4 g/dL (12.0-15.5); LYMPHOCYTES % (AUTO) 28.7 % (13-45); MEAN CORPUSCULAR HEMOGLOBIN 29.6 pg (27.0-33.4); MEAN CORPUSCULAR HGB CONC 34.6 g/dL (32.0-36.0); MEAN CORPUSCULAR VOLUME 86 fl (80-97); MONOCYTES % (AUTO) 4.5 % (3-13); PLATELET COUNT 277 10^3/uL (150-450); RED BLOOD COUNT 5.21 10^6/uL (3.72-5.28); TOTAL CELLS COUNTED % (AUTO) 100 %; WHITE BLOOD COUNT 10.9 10^3/uL (4.0-10.5)
[2019-07-28 19:45] LABS: APPEARANCE,URINE SLIGHTLY-CLOUDY; BILIRUBIN,URINE NEGATIVE (NEGATIVE); COLOR,URINE YELLOW; GLUCOSE, URINE NEGATIVE (NEGATIVE); KETONES,URINE NEGATIVE (NEGATIVE); LEUKOCYTE ESTERASE,URINE NEGATIVE (NEGATIVE); NITRITE,URINE NEGATIVE (NEGATIVE); PROTEIN,URINE NEGATIVE (NEGATIVE); URINE SPECIFIC GRAVITY 1.021
[2019-07-28 19:53] LABS: ALBUMIN 4.7 g/dL (3.5-5.0); ALKALINE PHOSPHATASE 97 U/L (38-126); ANION GAP 8 (5-19); ASPARTATE AMINO TRANSFERASE 23 U/L (14-36); BILIRUBIN,DIRECT 0.1 mg/dL (0.0-0.4); BILIRUBIN,TOTAL 0.7 mg/dL (0.2-1.3); BLOOD UREA NITROGEN 13 mg/dL (7-20); CALCIUM 9.8 mg/dL (8.4-10.2); CARBON DIOXIDE 28 mmol/L (22-30); CHLORIDE 101 mmol/L (98-107); GLUCOSE 83 mg/dL (75-110); POTASSIUM 4.4 mmol/L (3.6-5.0); TOTAL PROTEIN 7.9 g/dL (6.3-8.2)
--- NOTE | 2019-07-28 21:11 | RADIOLOGY REPORT (SQ) ---
EXAM DESCRIPTION: CLINICAL HISTORY: 29 years Female Right flank pain COMPARISON: None. TECHNIQUE: Transabdominal grayscale imaging performed to evaluate the kidneys and urinary bladder. FINDINGS: Right kidney measures 10.8 x 6 cm. Left kidney measures 10.8 x 5.4 cm. No evidence of hydronephrosis. Scattered echogenic foci in the kidneys bilaterally consistent with known nonobstructing calculi. IMPRESSION: Bilateral nonobstructing renal calculi No evidence of hydronephrosis Neither ureteral jet is identified
== END 2019-07-28 21:20 | disposition left against medical advice (07) ==
LOC: ER 17:47
DX: Z53.21 Procedure and treatment not carried out due to patient leaving prior to being seen by health care provider (principal); R10.9 Unspecified abdominal pain; R11.2 Nausea with vomiting, unspecified; Z87.891 Personal history of nicotine dependence; Z88.2 Allergy status to sulfonamides; Z88.8 Allergy status to other drugs, medicaments and biological substances
CPT/HCPCS: 36415; 76770; 80053; 81001; 83690; 84703; 85025; 99281

== ENCOUNTER 2019-07-31 13:45 | Emergency (ER) | payer OTHER ==
[2019-07-31] MEDS ORDERED: KETOROLAC TROMETHAMINE INJ/PF 30 MG/1 ML SDV IV ONE (14:19)
[2019-07-31] MEDS ORDERED: ONDANSETRON HCL INJ/PF 4 MG/2 ML SDV IV ONE ×2 (14:19→16:20)
[2019-07-31 14:37] LABS: ABSOLUTE BASOPHILS # (AUTO) 0.1 10^3/uL (0.0-0.2); ABSOLUTE EOSINOPHILS # (AUTO) 0.2 10^3/uL (0.0-0.6); ABSOLUTE MONOCYTES (AUTO) 0.6 10^3/uL (0.1-1.4); ABSOLUTE NEUT (AUTO) 8.3 10^3/uL (1.7-8.2); BASOPHILS % (AUTO) 1.1 % (0-2); EOSINOPHILS % (AUTO) 1.5 % (0-6); HEMATOCRIT 43.8 % (36.0-47.0); LYMPHOCYTES % (AUTO) 24.9 % (13-45); MEAN CORPUSCULAR HEMOGLOBIN 29.3 pg (27.0-33.4); MEAN CORPUSCULAR HGB CONC 34.2 g/dL (32.0-36.0); MEAN CORPUSCULAR VOLUME 86 fl (80-97); MONOCYTES % (AUTO) 4.9 % (3-13); PLATELET COUNT 272 10^3/uL (150-450); RED BLOOD COUNT 5.13 10^6/uL (3.72-5.28); RED CELL DISTRIBUTION WIDTH 13.7 % (11.5-14.0); SEGMENTED NEUTROPHILS % (AUTO) 67.6 % (42-78); TOTAL CELLS COUNTED % (AUTO) 100 %; WHITE BLOOD COUNT 12.2 10^3/uL (4.0-10.5)
[2019-07-31 14:42] LABS: APPEARANCE,URINE SLIGHTLY-CLOUDY; BILIRUBIN,URINE NEGATIVE (NEGATIVE); COLOR,URINE YELLOW; GLUCOSE, URINE NEGATIVE (NEGATIVE); KETONES,URINE NEGATIVE (NEGATIVE); LEUKOCYTE ESTERASE,URINE NEGATIVE (NEGATIVE); NITRITE,URINE NEGATIVE (NEGATIVE); PROTEIN,URINE NEGATIVE (NEGATIVE); URINE SPECIFIC GRAVITY 1.026
[2019-07-31 15:02] LABS: ALBUMIN 4.3 g/dL (3.5-5.0); ALKALINE PHOSPHATASE 93 U/L (38-126); ANION GAP 8 (5-19); ASPARTATE AMINO TRANSFERASE 25 U/L (14-36); BILIRUBIN,TOTAL 0.5 mg/dL (0.2-1.3); BLOOD UREA NITROGEN 11 mg/dL (7-20); CALCIUM 9.2 mg/dL (8.4-10.2); CARBON DIOXIDE 29 mmol/L (22-30); CHLORIDE 100 mmol/L (98-107); GLUCOSE 107 mg/dL (75-110); POTASSIUM 4.1 mmol/L (3.6-5.0); TOTAL PROTEIN 7.2 g/dL (6.3-8.2)
[2019-07-31] MEDS ORDERED: NORMAL SALINE 1000 ML 1,000 ML IV ONE (16:20)
[2019-07-31] MEDS ORDERED: MORPHINE SULFATE 10 MG/ML INJ IV ONE (16:20)
--- NOTE | 2019-07-31 16:22 | ER Document Report ---
ED GI/ - General Chief Complaint: Abdominal Pain Stated Complaint: ABDOMINAL PAIN Time Seen by Provider: 07/31/19 14:17 Primary Care Provider: AMANDA HOOK [Provider Group] - Follow up as needed AVSQUEZ DOSHI PA-C [Primary Care Provider] - Follow up as needed Mode of Arrival: Ambulatory Information source: Patient Notes: Patient presents complaining of right flank pain for the past 4 days. Patient reports nausea vomiting and diarrhea. Patient states she is vomited twice and had diarrhea x1 episode. Patient also complains of some dysuria. Patient denies any vaginal bleeding or discharge. Patient states she was diagnosed with a kidney stone a few days ago but is uncertain if she may have passed it yet. TRAVEL OUTSIDE OF THE [place] IN LAST 30 DAYS: No - HPI Patient complains to provider of: Abdominal pain, Diarrhea, Flank pain, Vomiting Onset: Other - 4 days Timing/Duration: Persistent Quality of pain: Pressure Pain Level: 4 Location: Right flank Vaginal bleeding (Compared to normal period): None Associated symptoms: Diarrhea, Dysuria, Nausea, Vomiting. denies: Fever Exacerbated by: Denies Relieved by: Denies Similar symptoms previously: Yes Recently seen / treated by doctor: Yes - Related Data Allergies/Adverse Reactions: Sulfa (Sulfonamide Antibiotics) Allergy (Verified 07/31/19 14:16) Hives aspirin [Aspirin] Adverse Reaction (Intermediate, Verified 07/31/19 14:16) Abdominal pain Past Medical History - General Information source: Patient - Social History Smoking Status: Never Smoker Frequency of alcohol use: None Drug Abuse: None Occupation: Cleaning services Lives with: Family Family History: Arthritis, CAD, CVA, DM, Hyperlipidemia, Hypertension, Thyroid Disfunction Patient has homicidal ideation: No Pulmonary Medical History: Reports: Hx Asthma Neurological Medical History: Reports: Hx Migraine Renal/ Medical History: Reports: Hx Kidney Stones. Denies: Hx Peritoneal Dialysis GI Medical History: Reports: Hx Gastroesophageal Reflux Disease, Hx Hiatal Hernia Musculoskeletal Medical History: Reports Hx Musculoskeletal Trauma Skin Medical History: Reports Hx Cellulitis, Reports Hx MRSA Psychiatric Medical History: Reports: Hx Attention Deficit Hyperactivity Disorder, Hx Depression Traumatic Medical History: Reports: Hx Fractures - toe Past Surgical History: Reports: Hx Kidney (Renal Surgery) - for kidney stones, Hx Myringotomy, Hx Nose Surgery, Hx Tonsillectomy - Immunizations Immunizations up to date: Yes Hx Diphtheria, Pertussis, Tetanus Vaccination: Yes - unknown Review of Systems - Review of Systems Constitutional: No symptoms reported. denies: Fever EENT: No symptoms reported Cardiovascular: No symptoms reported. denies: Chest pain Respiratory: No symptoms reported. denies: Cough Gastrointestinal: Abdominal pain, Diarrhea, Nausea, Vomiting Genitourinary: Dysuria, Flank pain Female Genitourinary: No symptoms reported Musculoskeletal: Back pain Skin: No symptoms reported Hematologic/Lymphatic: No symptoms reported Neurological/Psychological: No symptoms reported Physical Exam - Vital signs Vitals: Temp Pulse Resp BP Pulse Ox 98.5 F 110 H 16 147/83 H 99 07/31/19 13:49 07/31/19 13:49 07/31/19 13:49 07/31/19 13:49 07/31/19 13:49 - General General appearance: Appears well, Alert In distress: None - HEENT Head: Normocephalic, Atraumatic Eyes: Normal Conjunctiva: Normal Nasal: Normal Mouth/Lips: Normal Neck: Normal, Supple. No: Lymphadenopathy - Respiratory Respiratory status: No respiratory distress Chest status: Nontender Breath sounds: Normal. No: Rales, Rhonchi, Stridor, Wheezing Chest palpation: Normal - Cardiovascular Rhythm: Regular Heart sounds: S1 appreciated, S2 appreciated Murmur: No - Abdominal Inspection: Morbidly Obese Distension: No distension Bowel sounds: Normal Tenderness: Tender - RLQ Organomegaly: No organomegaly - Back Back: CVA tenderness - right - Extremities General upper extremity: Normal inspection, Normal strength General lower extremity: Normal inspection, Normal strength - Neurological Neuro grossly intact: Yes Cognition: Normal [place] Coma Scale Eye Opening: Spontaneous [place] Coma Scale Verbal: Oriented Jacob Coma Scale Motor: Obeys Commands [place] Coma Scale Total: 15 - Psychological Associated symptoms: Normal affect, Normal mood - Skin Skin Temperature: Warm Skin Moisture: Dry Skin Color: Normal Course - Re-evaluation Re-evalutation: 07/31/19 16:[address] scan reviewed, patient without any obstructive uropathy, patient without any findings worrisome for appendicitis. Patient without any additional vomiting while here. Patient does complain of dysuria symptoms although only has very minimal hematuria noted on urinalysis. Urine will be cultured at this time. Patient encouraged to follow-up with her primary care provider as well as urology for recheck. - Vital Signs Vital signs: Temp Pulse Resp BP Pulse Ox 97.9 F 85 20 129/60 H 100 07/31/19 18:40 07/31/19 18:40 07/31/19 18:40 07/31/19 18:40 07/31/19 18:40 - Laboratory Result Diagrams: 07/31/19 14:26 07/31/19 14:26 Laboratory results interpreted by me: 07/31/19 07/31/19 14:26 14:26 WBC 12.2 H Absolute Neuts (auto) 8.3 H Urine Blood SMALL H Urine Urobilinogen 2.0 H 07/31/19 16:57 Labs- Entire Visit 07/31/19 07/31/19 07/31/19 14:26 14:26 14:26 WBC 12.2 H RBC 5.13 Hgb 15.0 Hct 43.8 MCV 86 MCH 29.3 MCHC 34.2 RDW 13.7 Plt Count 272 Lymph % (Auto) 24.9 [place] % (Auto) 4.9 Eos % (Auto) 1.5 Baso % (Auto) 1.1 Absolute Neuts (auto) 8.3 H Absolute Lymphs (auto) 3.0 Absolute Monos (auto) 0.6 Absolute Eos (auto) 0.2 Absolute Basos (auto) 0.1 Seg Neutrophils % 67.6 Sodium 137.1 Potassium 4.1 Chloride 100 Carbon Dioxide 29 Anion Gap 8 BUN 11 Creatinine 0.79 Est GFR ( Amer) > 60 Est GFR (MDRD) Non-Af > 60 Glucose 107 Calcium 9.2 Total Bilirubin 0.5 Direct Bilirubin 0.0 Neonat Total Bilirubin Not Reportable Neonat Direct Bilirubin Not Reportable Neonat Indirect Bili Not Reportable AST 25 ALT 18 Alkaline Phosphatase 93 Total Protein 7.2 Albumin 4.3 Lipase 80.2 Serum HCG, Qual NEGATIVE Urine Color Urine Appearance Urine pH Ur Specific [place] Urine Protein Urine Glucose (UA) Urine Ketones Urine Blood Urine Nitrite Urine Bilirubin Urine Urobilinogen Ur Leukocyte Esterase Urine WBC (Auto) Urine RBC (Auto) Squamous Epi Cells Auto Urine Mucus (Auto) Urine Ascorbic Acid 07/31/19 14:26 WBC RBC Hgb Hct MCV MCH MCHC RDW Plt Count Lymph % (Auto) [place] % (Auto) Eos % (Auto) Baso % (Auto) Absolute Neuts (auto) Absolute Lymphs (auto) Absolute Monos (auto) Absolute Eos (auto) Absolute Basos (auto) Seg Neutrophils % Sodium Potassium Chloride Carbon Dioxide Anion Gap BUN Creatinine Est GFR ( Amer) Est GFR (MDRD) Non-Af Glucose Calcium Total Bilirubin Direct Bilirubin Neonat Total Bilirubin Neonat Direct Bilirubin Neonat Indirect Bili AST ALT Alkaline Phosphatase Total Protein Albumin Lipase Serum HCG, Qual Urine Color YELLOW Urine Appearance SLIGHTLY-CLOUDY Urine pH 5.0 Ur Specific [place] 1.026 Urine Protein NEGATIVE Urine Glucose (UA) NEGATIVE Urine Ketones NEGATIVE Urine Blood SMALL H Urine Nitrite NEGATIVE Urine Bilirubin NEGATIVE Urine Urobilinogen 2.0 H Ur Leukocyte Esterase NEGATIVE Urine WBC (Auto) 6 Urine RBC (Auto) 20 Squamous Epi Cells Auto 8 Urine Mucus (Auto) MANY Urine Ascorbic Acid NEGATIVE - Diagnostic Test Radiology reviewed: Image reviewed, Reports reviewed Discharge - Discharge Clinical Impression: Flank pain, Nausea vomiting and diarrhea Hematuria Qualifiers: Hematuria type: unspecified type Qualified Code(s): R31.9 - Hematuria, unspecified Condition: Stable Disposition: HOME, SELF-CARE Instructions: Abdominal Pain ([facility]), Flank Pain ([facility]), Hematuria ([facility]) Additional Instructions: Return immediately for any new or worsening symptoms Followup with your primary care provider, call tomorrow to make a followup appointment VOMITING: Vomiting (or nausea without vomiting) can be caused by many other different problems. It can mean that something's wrong with the stomach, such as ulcers or inflammation or the intestinal tract, such as appendicitis. But it can also be a symptom of a problem that has nothing to do with the stomach or intestines. Vomiting is common with severe headaches, earaches, tonsillitis, and kidney infections, etc. We see it with pneumonia or heart attacks. Drugs can cause nausea and vomiting. Many abdominal problems cause vomiting; for example, gallstones, kidney stones, pancreatitis, and intestinal obstruction (blocked bowels). In most cases, curing the vomiting depends on fixing the problem that caused it. For temporary relief, we may use an anti-nausea medicine. For home use, we can prescribe suppositories, chewable pills, pills that dissolve in the mouth, or liquid anti-nausea drugs. If the vomiting seems to be caused by a problem in the stomach, acid-suppressing drugs may be prescribed as well. It's important to avoid dehydration. Sip small amounts of clear liquids (soft drinks, tea, broth, etc) . Try to take fluids frequently even if you are vomiting to prevent dehydration. Take increasing amounts of fluid and when liquids are being consumed successfully, advance to small amounts of bland food (toast, soups, mashed potatoes, etc.) until you are able to resume a regular diet. Avoid aspirin, tobacco, and alcohol. If the vomiting worsens, if the problem that's making you vomit worsens, or if there's evidence of bleeding in the stomach (such as black, tarry stool, or bloody or black vomit), you should return immediately. Also, return if abdominal pain worsens or becomes localized to one area or you develop high fever. Call your doctor if you aren't improved in 24 hours. DIARRHEA, NON-SPECIFIC: Diarrhea means frequent, watery stools. There are many causes. Any problem that keeps the intestinal tract from absorbing water from the stool can lead to diarrhea. A sudden new diarrhea problem is usually caused by a virus, food sensitivity, toxic bacteria, or drugs. In this case, we expect the problem to go away soon. Testing is done only if you seem seriously ill from the diarrhea. If you have chronic diarrhea, or diarrhea that keeps coming back, we need to find out why. Chronic diarrhea can be due to inflammation of the bowels such as Crohn's disease or ulcerative colitis, food sensitivity such as intolerance to lactose or wheat protein, irritable bowel syndrome, and other problems. If your diarrhea is a significant problem but it's not clear why you have it, we'll refer you to a specialist for further testing. During an episode of diarrhea, drink small amounts (two to six ounces) of clear liquids (soft drinks, sport drinks, herb teas, broth, etc). Take fluids frequently to prevent dehydration. It's usually not a problem to take mild anti- diarrhea medication such as Kaopectate or Pepto-Bismol. As the diarrhea eases, advance to small amounts of bland food (mashed potato, toast) for 24 hours. Call the physician if blood appears in your vomit or stool, if vomiting lasts longer than 24 hours, if the abdominal pain worsens or becomes localized to one area, if you develop high fever, or if you become lightheaded and weak. INTRAVENOUS (I V) FLUIDS: As part of your care today, you received intravenous (IV) fluids. IV fluids are administered to patients who are dehydrated or to those who have certain chemical (electrolyte) abnormalities that need correcting. ANTINAUSEA MEDICATION: You have been given a medication to suppress nausea and vomiting. This type of medication can be given as a shot, pill, or suppository. It will usually last for many hours. Pills and shots usually last six to eight hours. For the typical illness, only one or two doses of the medication may be necessary. Mild lightheadedness may occur. This type of medicine can cause drowsiness. Do not drive or operate dangerous machinery while under its influence. Do not mix with alcohol. See your doctor at once if you have muscle spasms or tightness, or unco ntrollable motions (particularly of the neck, mouth, or jaw). Persistent vomiting or severe lightheadedness should also be evaluated by the physician. FOLLOW-UP CARE: If you have been referred to a physician for follow-up care, call the physicians office for an appointment as you were instructed or within the next two days. If you experience worsening or a significant change in your symptoms, notify the physician immediately or return to the Emergency Department at any time for re-evaluation. Prescriptions: Dicyclomine HCl [Bentyl 20 mg Tablet] 20 mg PO QID PRN #12 tablet PRN Reason: Ondansetron [Zofran Odt 4 mg Tablet] 1 tab PO Q6H #15 tab.rapdis Forms: Return to Work Referrals: VASQUEZ DOSHI PA-C [Primary Care Provider] - Follow up as needed [facility] [Provider Group] - Follow up as needed
--- NOTE | 2019-07-31 16:39 | RADIOLOGY REPORT (SQ) ---
EXAM DESCRIPTION: CT ABD/PELVIS NO ORAL OR IV IMAGES COMPLETED DATE/TIME: 07/31/2019 4:00 pm REASON FOR STUDY: R flank pain COMPARISON: 01/01/2019 TECHNIQUE: CT scan of the abdomen and pelvis performed without intravenous or oral contrast. Images reviewed with lung, soft tissue, and bone windows. Reconstructed coronal and sagittal MPR images revi ewed. All images stored on PACS. All CT scanners at this facility use dose modulation, iterative reconstruction, and/or weight based d osing when appropriate to reduce radiation dose to as low as reasonably achievable (ALARA). [facility]: Dose Right [facility]: CareDose [facility]: Dose Right [facility]: Teradose 4D [facility]: Smart [employer] RADIATION DOSE: CT Rad equipment meets quality standard of care and radiation dose reduction techniq ues were employed. CTDIvol: 17.0 mGy. DLP: 1013 mGy-cm.mGy. LIMITATIONS: None. FINDINGS: LOWER CHEST: No significant findings. No nodules or infiltrates. NON-CONTRASTED LIVER, SPLEEN, ADRENALS: Evaluation limited by lack of IV contrast. No identified sign ificant masses. PANCREAS: No masses. No peripancreatic inflammatory changes. GALLBLADDER: Surgically absent. RIGHT KIDNEY AND URETER: No suspicious masses. Assessment limited by lack of IV contrast. Nonobstru cting upper and lower calyceal calculi are present. No hydronephrosis or hydroureter. LEFT KIDNEY AND URETER: No suspicious masses. Assessment limited by lack of IV contrast. Nonobstruc ting upper and lower calyceal calculi are present. No hydronephrosis or hydroureter. AORTA AND RETROPERITONEUM: No aneurysm. No retroperitoneal masses or adenopathy. BOWEL AND PERITONEAL CAVITY: No obvious masses or inflammatory changes. No free fluid. APPENDIX: Normal. PELVIS, BLADDER, AND ABDOMINAL WALL:No abnormal masses. No free fluid. Bladder normal. BONES: No significant findings. OTHER: No other significant finding. IMPRESSION: NO SIGNIFICANT OR ACUTE PROCESS IN THE ABDOMEN OR PELVIS. COMMENT: Quality ID # [id number]: Final reports with documentation of one or more dose reduction techniques (e.g., Automated exposure control, adjustment of the mA and/or kV according to patient size, use of iterative reconstruction technique) TECHNICAL DOCUMENTATION: JOB ID: [id number] [employer]- All Rights Reserved Reading location - IP/workstation name: [email or web address]
[2019-07-31 19:07] VITALS: BP 129/60
== END 2019-07-31 18:30 | disposition home or self-care (01) ==
LOC: ER 13:45
DX: R10.9 Unspecified abdominal pain (principal); R11.2 Nausea with vomiting, unspecified; R19.7 Diarrhea, unspecified; R31.9 Hematuria, unspecified; Z88.2 Allergy status to sulfonamides; Z87.442 Personal history of urinary calculi; Z88.6 Allergy status to analgesic agent
CPT/HCPCS: 96376; 99284; 96361; 96374; 96375; 36415; 83690; 84703; 85025; 80053; 81001; 74176; J1885; J2270; J2405; J7030

== ENCOUNTER 2019-08-07 06:50 | Emergency (ER) | payer OTHER ==
[2019-08-07] MEDS ORDERED: PROMETHAZINE HCL INJ 25 MG/1 ML VIAL IV ONE (08:31)
[2019-08-07] MEDS ORDERED: NORMAL SALINE 1000 ML 1,000 ML IV ONE (08:31)
--- NOTE | 2019-08-07 08:36 | ER Document Report ---
ED GI/ - General Chief Complaint: Nausea/Vomiting Stated Complaint: FLANK PAIN,NAUSEA Time Seen by Provider: 08/07/19 08:22 Primary Care Provider: VASQUEZ DOSHI PA-C [Primary Care Provider] - Follow up in 3-5 days Notes: Patient is a 29-year-old female with a history of kidney stones and migraines who presents to the emergency department with nausea and vomiting for the past few days. She was seen here 5 days ago for similar symptoms. She states that she feels the kidney stone had passed, but still has nausea and vomiting. Patient states that she has not been able to keep anything down. She has Zofran at home, but states that it has not helped her. Patient's last menstrual cycle was on July 17. Patient states that she was sexually active. Denies any dysuria, vaginal discharge, or excessive diarrhea. Her last bowel movement was yesterday and states it was soft. Past surgical history includes cholecystectomy and gastric surgery. TRAVEL OUTSIDE OF THE [place] IN LAST 30 DAYS: No - Related Data Allergies/Adverse Reactions: Sulfa (Sulfonamide Antibiotics) Allergy (Verified 07/31/19 14:16) Hives aspirin [Aspirin] Adverse Reaction (Intermediate, Verified 07/31/19 14:16) Abdominal pain Home Medications: Omeprazole Past Medical History - Social History Smoking Status: Never Smoker Frequency of alcohol use: None Drug Abuse: None Family History: Arthritis, CAD, CVA, DM, Hyperlipidemia, Hypertension, Thyroid Disfunction Patient has homicidal ideation: No Pulmonary Medical History: Reports: Hx Asthma Neurological Medical History: Reports: Hx Migraine Renal/ Medical History: Reports: Hx Kidney Stones. Denies: Hx Peritoneal Dialysis GI Medical History: Reports: Hx Gastroesophageal Reflux Disease, Hx Hiatal Hernia Musculoskeletal Medical History: Reports Hx Musculoskeletal Trauma Skin Medical History: Reports Hx Cellulitis, Reports Hx MRSA Psychiatric Medical History: Reports: Hx Attention Deficit Hyperactivity Disorder, Hx Depression Traumatic Medical History: Reports: Hx Fractures - toe Past Surgical History: Reports: Hx Kidney (Renal Surgery) - for kidney stones, Hx Myringotomy, Hx Nose Surgery, Hx Tonsillectomy - Immunizations Immunizations up to date: Yes Hx Diphtheria, Pertussis, Tetanus Vaccination: Yes - unknown Review of Systems - Review of Systems Notes: REVIEW OF SYSTEMS: CONSTITUTIONAL : Denies recent illness. Denies recent unintentional weight loss. Denies fever, chills, or sweats. EENT: Denies eye, ear, throat, or mouth pain, discharge, or symptoms. Denies nasal or sinus congestion. CARDIOVASCULAR: Denies chest pain. RESPIRATORY: Denies shortness of breath, cough, congestion, difficulty breathing, or wheezing. GASTROINTESTINAL: See HPI. GENITOURINARY: Denies difficulty urinating, burning, blood in urine, urgency or frequency. MUSCULOSKELETAL: Denies neck and back pain. Denies joint pain or swelling. SKIN: Denies rash, itchiness, or lesions HEMATOLOGIC : Denies easy bruising or bleeding. LYMPHATIC: Denies swollen, painful, enlarged glands. NEUROLOGICAL: Denies no numbness or tingling denies weakness. Denies headache. Denies altered mental status. Denies alteration in speech. PSYCHIATRIC: Denies stress, anxiety, alteration in sleep patterns, or depression. All other systems reviewed and negative. Physical Exam - Vital signs Vitals: Temp Pulse Resp BP Pulse Ox 98.0 F 52 L 14 107/66 97 08/07/19 06:58 08/07/19 06:58 08/07/19 06:58 08/07/19 06:58 08/07/19 06:58 - Notes Notes: PHYSICAL EXAMINATION: GENERAL: Appears well, healthy, well-nourished, no acute distress. HEAD: Normocephalic, atraumatic. EYES: PERRL, conjunctiva normal, all extraocular movements intact, sclera nonicteric ENT: Moist mucous membranes. NECK: Supple, no noticeable swelling, redness, rash. Normal range of motion. LUNGS: Equal breath sounds bilaterally and clear to auscultation. No wheezes rales or rhonchi. CARDIOVASCULAR: S1-S2, regular rate, regular rhythm. Radial pulses 2+, normal. ABDOMEN: Normoactive bowel sounds. Soft, nontender, no guarding, no rebound tenderness, and no masses palpated. EXTREMITIES: Normal strength and range of motion, no pitting or edema. No cyanosis. NEUROLOGICAL: Moves all extremities upon command. Strength 5/5 in all extremities. PSYCH: Normal mood, normal affect. SKIN: Warm, dry. No rash, lesions, ulcerations noted. Normal skin turgor. BACK: Bilateral CVA tenderness. Course - Re-evaluation Re-evalutation: 08/07/19 Hematology shows a leukocytosis of 11,400. Chemistries are unremarkable. Urinalysis is also unremarkable. Patient will be sent home with Phenergan for nausea relief. We will also put her back on her omeprazole, she has not taken her omeprazole in the past 3 days. Patient states that she is out of her omeprazole. Renal ultrasound was done because patient had a CT done less than a week ago. Ultrasound shows that there is a 6 mm calcification within the lower pole calyx of the right kidney. No hydronephrosis noted. There are also renal calculi in the left kidney. No hydronephrosis or hydroureter ureter noted. Bladder appears normal per radiologist. Patient will follow-up with her primary care provider in regards to this visit. - Vital Signs Vital signs: Temp Pulse Resp BP Pulse Ox 98.4 F 76 12 123/84 100 08/07/19 12:13 08/07/19 12:13 08/07/19 12:13 08/07/19 12:13 08/07/19 12:13 - Laboratory Result Diagrams: 08/07/19 09:10 08/07/19 09:10 Laboratory results interpreted by me: 08/07/19 08/07/19 09:10 09:10 WBC 11.4 H RDW 14.1 H Sodium 135.5 L Calcium 10.3 H Discharge - Discharge Clinical Impression: Vomiting Qualifiers: Vomiting type: unspecified Vomiting Intractability: non-intractable Nausea presence: with nausea Qualified Code(s): R11.2 - Nausea with vomiting, unspecified GERD (gastroesophageal reflux disease) Qualifiers: Esophagitis presence: without esophagitis Qualified Code(s): K21.9 - Gastro-esophageal reflux disease without esophagitis Condition: Stable Disposition: HOME, SELF-CARE Additional Instructions: You were seen today in the emergency department for nausea and vomiting. You are being prescribed Phenergan for your nausea and vomiting. Take as directed. Please follow-up with your primary care provider. Sure you are taking your omeprazole, as this may cause you to have nausea and vomiting. Prescriptions: Omeprazole 40 mg PO DAILY #30 capsule. Promethazine HCl [Phenergan 25 mg Tablet] 1 - 2 tab PO Q6H PRN #15 tablet PRN Reason: Forms: Return to Work Referrals: VASQUEZ DOSHI PA-C [Primary Care Provider] - Follow up in 3-5 days
--- NOTE | 2019-08-07 09:22 | RADIOLOGY REPORT (SQ) ---
EXAM DESCRIPTION: U/S RETROPERITON (RENAL/AORTA) IMAGES COMPLETED DATE/TIME: 08/07/2019 9:07 am REASON FOR STUDY: flank pain; hx of renal stones COMPARISON: Ultrasound from 07/28/[address] of the abdomen and pelvis without contrast from 07/31/19. TECHNIQUE: Dynamic and static grayscale images acquired of the kidneys and bladder and recorded on P ACS. Additional selected color Doppler and spectral images recorded. LIMITATIONS: None. FINDINGS: RIGHT KIDNEY: The right kidney measures 10.4 cm in length. The corticomedullary different iation is preserved. There is a 6 mm calcification within a lower pole calyx. There is no hydroneph rosis or mass. LEFT KIDNEY: The left kidney measures 10.2 cm in length. The corticomedullary differentiation is pr eserved. There are several caliceal calculi that measure up to 3 mm in diameter. There is no hydron ephrosis or mass. BLADDER: There is no urinary bladder mass or intraluminal calcification. OTHER FINDINGS: No other finding. IMPRESSION: 1. Bilateral caliceal calculi without associated hydronephrosis. 2. No abnormality of the urinary bladder. TECHNICAL DOCUMENTATION: JOB ID: [id number] 2010 [employer]- All Rights Reserved Reading location - IP/workstation name: [email or web address]
[2019-08-07 09:24] LABS: ABSOLUTE BASOPHILS # (AUTO) 0.1 10^3/uL (0.0-0.2); ABSOLUTE EOSINOPHILS # (AUTO) 0.1 10^3/uL (0.0-0.6); ABSOLUTE LYMPHOCYTES (AUTO) 2.6 10^3/uL (0.5-4.7); ABSOLUTE MONOCYTES (AUTO) 0.7 10^3/uL (0.1-1.4); ABSOLUTE NEUT (AUTO) 7.8 10^3/uL (1.7-8.2); BASOPHILS % (AUTO) 1.3 % (0-2); EOSINOPHILS % (AUTO) 0.9 % (0-6); HEMATOCRIT 43.8 % (36.0-47.0); HEMOGLOBIN 15.2 g/dL (12.0-15.5); LYMPHOCYTES % (AUTO) 22.7 % (13-45); MEAN CORPUSCULAR HEMOGLOBIN 29.6 pg (27.0-33.4); MEAN CORPUSCULAR HGB CONC 34.8 g/dL (32.0-36.0); MEAN CORPUSCULAR VOLUME 85 fl (80-97); MONOCYTES % (AUTO) 6.3 % (3-13); PLATELET COUNT 244 10^3/uL (150-450); RED BLOOD COUNT 5.15 10^6/uL (3.72-5.28); RED CELL DISTRIBUTION WIDTH 14.1 % (11.5-14.0); SEGMENTED NEUTROPHILS % (AUTO) 68.8 % (42-78); TOTAL CELLS COUNTED % (AUTO) 100 %; WHITE BLOOD COUNT 11.4 10^3/uL (4.0-10.5)
[2019-08-07 09:43] LABS: APPEARANCE,URINE SLIGHTLY-CLOUDY; BILIRUBIN,URINE NEGATIVE (NEGATIVE); COLOR,URINE YELLOW; GLUCOSE, URINE NEGATIVE (NEGATIVE); KETONES,URINE NEGATIVE (NEGATIVE); LEUKOCYTE ESTERASE,URINE NEGATIVE (NEGATIVE); NITRITE,URINE NEGATIVE (NEGATIVE); PROTEIN,URINE NEGATIVE (NEGATIVE); URINE SPECIFIC GRAVITY 1.019; UROBILINOGEN,URINE NEGATIVE mg/dL (<2.0)
[2019-08-07 09:57] LABS: ALBUMIN 4.5 g/dL (3.5-5.0); ALKALINE PHOSPHATASE 82 U/L (38-126); ANION GAP 9 (5-19); ASPARTATE AMINO TRANSFERASE 22 U/L (14-36); BILIRUBIN,TOTAL 0.8 mg/dL (0.2-1.3); BLOOD UREA NITROGEN 15 mg/dL (7-20); CALCIUM 10.3 mg/dL (8.4-10.2); CARBON DIOXIDE 27 mmol/L (22-30); CHLORIDE 100 mmol/L (98-107); GLUCOSE 88 mg/dL (75-110); POTASSIUM 4.5 mmol/L (3.6-5.0); TOTAL PROTEIN 7.6 g/dL (6.3-8.2)
[2019-08-07] MEDS ORDERED: ONDANSETRON HCL INJ/PF 4 MG/2 ML SDV IV ONE (10:00)
[2019-08-07] MEDS ORDERED: PANTOPRAZOLE SODIUM 40 MG TABLET.DR PO ONE (11:22)
[2019-08-07 12:15] VITALS: BP 123/84
== END 2019-08-07 12:16 | disposition home or self-care (01) ==
LOC: ER 06:50
DX: R11.2 Nausea with vomiting, unspecified (principal); K21.9 Gastro-esophageal reflux disease without esophagitis; R10.9 Unspecified abdominal pain; Z87.442 Personal history of urinary calculi; Z88.2 Allergy status to sulfonamides; Z88.6 Allergy status to analgesic agent; Z86.14 Personal history of Methicillin resistant Staphylococcus aureus infection
CPT/HCPCS: 99284; 96361; 96374; 36415; 83690; 85025; 80053; 81001; 76770; J2550; J2405; J7030; J3490